=== PATIENT | male | born 1940 | race Caucasian/White ===

== ENCOUNTER → 2018-03-20 | Outpatient (CLI) | payer MEDICARE, OTHER ==
--- NOTE | 2018-03-16 12:01 | Diagnostic Imaging Report ---
Thoracic Spine Radiographs: 4 views HISTORY: Pain COMPARISON: None available. DISCUSSION: The study is limited by generalized demineralization. No definite evidence of acute displaced fracture or subluxation of thoracic spine. Mild compression deformities of T11 and T12 vertebral bodies (T12 more than T11). Otherwise, vertebral body heights are maintained. Normal alignment of thoracic spine vertebral bodies. Left chest wall triple lead cardiac device and anterior cervical spine fusion hardware are seen. IMPRESSION: Compression deformities of T11 and T12 vertebral bodies of indeterminate age. Signed by: Dr. Karl Henry MD on 03/16/2018 11:58 AM
--- NOTE | 2018-03-16 12:05 | Diagnostic Imaging Report ---
Lumbar Spine Radiographs: 6 views HISTORY: Pain COMPARISON: Lumbar spine CT dated 04/16/2016 DISCUSSION: Some of the osseous structures are partially obscured by stool and bowel gas. There are five non-rib bearing lumbar vertebral bodies. The alignment of the spine is within normal limits. Compression deformities of T11, T12, and L2 vertebral bodies of indeterminate age. L5-S1 degenerative changes. IMPRESSION: T11, T12, and L2 vertebral body compression deformities of indeterminate age. Signed by: Dr. Karl Henry MD on 03/16/2018 12:01 PM
[~2018-03-20] MED LIST: ALDACTONE25 MG PO; ALLEGRA ALLERG180 MG PO; AMITRIPTYLINE H25 MG PO; ELIQUIS PO; LEVOTHYROXINE50 MCG PO; MIDODRINE HCL5 MG PO; MYRBETRIQ50 MG PO; NEXIUM40 MG PO; ROPINIROLE HCL2 MG PO; VENLAFAXINE HC100 MG PO; ZOLPIDEM TARTRA10 MG PO
--- NOTE | 2018-03-20 19:28 | Diagnostic Imaging Report ---
Bone Scan, delayed phase INDICATION: Bladder cancer; history of prostate cancer COMPARISON: Prior bone scan 04/18/2016; spine radiographs 03/16/2018 REPORT: Approximately 3 hours following intravenous administration of 25 mCi of Tc-99m MDP, delayed total body images in the anterior and posterior projections and selected spot images were obtained. Increased tracer is seen in the sacrum to the coccyx but not including the sacral alae. Focal increased tracer is seen in the right ilium at the inferior aspect of the SI joint. Otherwise, distribution of tracer activity is unremarkable throughout the skeletal system. No abnormal accumulation of tracer is seen in the soft tissues or urinary tract. IMPRESSION: Osteoblastic processes at the inferior aspect of the SI joint in the right ilium and in the sacrum are very worrisome for bone metastasis. Correlative imaging is warranted. Signed by: Dr. Indu Topete M.D. on 03/20/2018 7:25 PM
== END ==
LOC: NM 03-16 09:24
PROVIDERS: ATTEND Internal Medicine
DX: C67.9 Malignant neoplasm of bladder, unspecified (principal); R97.20 Elevated prostate specific antigen [PSA]
CPT/HCPCS: 72070; 72110; 78306; A9503

== ENCOUNTER 2018-04-27 10:05 | Emergency (ER) | payer MEDICARE ==
[~2018-04-27] VITALS: Ht 193 cm; Wt 124.3 kg
[2018-04-27] MEDS ORDERED: TRAMADOL HCL 50 MG TAB PO ONE (10:30)
--- NOTE | 2018-04-27 12:18 | Diagnostic Imaging Report ---
Exam: Left shoulder, 2 views, left scapula, 2 views History: Fall, pain Comparison: None. Findings: There is an acute, comminuted, impacted fracture of the surgical neck of the left humerus with approximately 1 cm fragment overriding and extension to the superior articular surface of the humeral head. No shoulder dislocation; the humeral head projects appropriately over the glenoid on the transscapular radiograph. No displaced scapular fracture though evaluation is slightly limited secondary to superimposition of overlying left chest implantable cardiac device. Diffuse soft tissue swelling about the left shoulder. Impression: Acute, comminuted and impacted intra-articular fracture of the humeral head and surgical neck. Signed by: Dr. Tl Romero M.D. on 04/27/2018 12:14 PM
[2018-04-27] MEDS ORDERED: HYDROCODONE/APAP 5MG-325MG TAB PO ONE (13:15)
[2018-04-27] MEDS ORDERED: KETOROLAC TROMETHAMINE 10 MG TAB PO ONE (13:15)
[2018-04-27] MEDS ORDERED: NEOMYCIN/POLYMYX/BACITR OINT 0.9 GM PKT ONE (13:41)
--- OUTSIDE RECORDS SUMMARY | 2018-05-05 11:53 | XMS REPORT ---
Author Author [facility] Address Unknown Phone Unavailable Care Team Providers Care Target Aircraft Technician Name Role Phone Tina COKER Unavailable Unavailable Laureano CASTAÑEDA Unavailable Unavailable Problems This patient has no known problems. Allergies, Adverse Reactions, Alerts This patient has no known allergies or adverse reactions. Medications This patient has no known medications. Results Test Description Test Time Test Comments Text Results Atomic Results Result Comments SHOULDER LEFT COMPLETE 2018-04-27 12:11:00 [place] [address] Patient Name: HANS PERKINS MR #: [id number] : 1940 Age/Sex: 77/M Req #: [id number] Adm Physician: Ordered by: CURTIS COKER MD Report #: [id number] Location: ER Room/Bed: Procedure: [id number] DX/SHOULDER LEFT COMPLETE Exam Date: 04/27/18 Exam Time: 1100 REPORT STATUS: Signed Exam: Left shoulder, 2 views, left scapula, 2 views History: Fall, pain Comparison: None. Findings: There is an acute, comminuted, impacted fracture of the surgical neck of the left humerus with approximately 1 cm fragment overriding and extension to the superior articular surface of the humeral head. No shoulder dislocation; the humeral head projects appropriately over the glenoid on the transscapular radiograph. No displaced scapular fracture though evaluation is slightly limited secondary to superimposition of overlying left chest implantable cardiac device. Diffuse soft tissue swelling about the left shoulder. Impression: Acute, comminuted and impacted intra-articular fracture of the humeral head and surgical neck. Signed by: Dr. Kenna Bradford M.D. on 04/27/2018 12:14 PM Dictated By: KENNA BRADFORD MD 1214 Transcribed By: HOWIE on 04/27/18 1214 COPY TO: CURTIS COKER MD SCAPULA LEFT 2018-04-27 12:11:00 [place] [address] Patient Name: HANS PERKINS MR #: [id number] : 1940 Age/Sex: 77/M Req #: [id number] Adm Physician: Ordered by: CURTIS COKER MD Report #: [id number] Location: ER Room/Bed: Procedure: [id number] DX/SCAPULA LEFT Exam Date: 04/27/18 Exam Time: 1100 REPORT STATUS: Signed Exam: Left shoulder, 2 views, left scapula, 2 views History: Fall, pain Comparison: None. Findings: There is an acute, comminuted, impacted fracture of the surgical neck of the left humerus with approximately 1 cm fragment overriding and extension to the superior articular surface of the humeral head. No shoulder dislocation; the humeral head projects appropriately over the glenoid on the transscapular radiograph. No displaced scapular fracture though evaluation is slightly limited secondary to superimposition of overlying left chest implantable cardiac device. Diffuse soft tissue swelling about the left shoulder. Impression: Acute, comminuted and impacted intra-articular fracture of the humeral head and surgical neck. Signed by: Dr. Kenna Bradford M.D. on 04/27/2018 12:14 PM Dictated By: KENNA BRADFORD MD 13 Transcribed By: HOWIE on 04/27/181213 COPY TO: CURTIS COKER MD BONE and/or JOINT WHOLE BODY 2018-03-20 19:18:00 [place] [address] Patient Name: HANS PERKINS MR #: [id number] : 1940 Age/Sex: 77/M Req #: [id number] Adm Physician: Ordered by: SAMMY CASTAÑEDA MD Report #: [id number] Location: [place] Room/Bed: Procedure: [id number] NM/BONE and/or JOINT WHOLE BODY Exam Date: 03/20/18 Exam Time: 1100 REPORT STATUS: Signed Bone Scan, delayed phase INDICATION: Bladder cancer; history of prostate cancer COMPARISON: Prior bone scan 04/18/2016; spine radiographs 03/16/2018 REPORT: Approximately 3 hours following intravenous administration of 25 mCi of Tc-99m MDP, delayed total body images in the anterior and posterior projections and selected spot images were obtained. Increased tracer is seen in the sacrum to the coccyx but not including the sacral alae. Focal increased tracer is seen in the right ilium at the inferior aspect of the SI joint. Otherwise, distribution of tracer activity is unremarkable throughout the skeletal system. No abnormal accumulation of tracer is seen in the soft tissues or urinary tract. IMPRESSION: Osteoblastic processes at the inferior aspect of the SI joint in the right ilium and in the sacrum are very worrisome for bone metastasis. Correlative imaging is warranted. Signed by: Dr. Jerome Topete M.D. on 03/20/2018 7:25 PM Dictated By: JEROME TOPETE MD 24 Transcribed By: HOWIE on 03/20/181924 COPY TO: SAMMY CASTAÑEDA MD SP LUMBAR, COMPLETE MIN 4VW 2018-03-16 11:58:00 [place] [address] Patient Name: HANS PERKINS MR #: [id number] : 1940 Age/Sex: 77/M Req #: [id number] Adm Physician: Ordered by: SAMMY CASTAÑEDA MD Report #: [id number] Location: [place] Room/Bed: Procedure: [id number] DX/SP LUMBAR, COMPLETE MIN 4VW Exam Date: 03/16/18 Exam Time: 1036 REPORT STATUS: Signed Lumbar Spine Radiographs: 6 views HISTORY: Pain COMPARISON: Lumbar spine CT dated 04/16/2016 DISCUSSION: Some of the osseous structures are partially obscured by stool and bowel gas. There are five non-rib bearing lumbar vertebral bodies. The alignment of the spine is within normal limits. Compression deformities of T11, T12, and L2 vertebral bodies of indeterminate age. L5-S1 degenerative changes. IMPRESSION: T11, T12, and L2 vertebral body compression deformities of indeterminate age. Signed by: Dr. Karl Villegas MD on 03/16/2018 12:01 PM Dictated By: KARL VILLEGAS MD 00 Transcribed By: HOWIE on 03/16/181200 COPY TO: SAMMY CASTAÑEDA MD THORACIC SPINE 2VW 2018-03-16 11:54:00 [place] [address] Patient Name: HANS PERKINS MR #: [id number] : 1940 Age/Sex: 77/M Req #: [id number] Adm Physician: Ordered by: SAMMY CASTAÑEDA MD Report #: [id number] Location: [place] Room/Bed: Procedure: [id number] DX/THORACIC SPINE 2VW Exam Date: 03/16/18 Exam Time: 1039 REPORT STATUS: Signed Thoracic Spine Radiographs: 4 views HISTORY: Pain COMPARISON: None available. DISCUSSION: The study is limited by generalized demineralization. No definite evidence of acute displaced fracture or subluxation of thoracic spine. Mild compression deformities of T11 and T12 vertebral bodies (T12 more than T11). Otherwise, vertebral body heights are maintained. Normal alignment of thoracic spine vertebral bodies. Left chest wall triple lead cardiac device and anterior cervical spine fusion hardware are seen. IMPRESSION: Compression deformities of T11 and T12 vertebral bodies of indeterminate age. Signed by: Dr. Karl Villegas MD on 03/16/2018 11:58 AM Dictated By: KARL VILLEGAS MD 1151 Transcribed By: HOWIE on 03/16/18 1156 COPY TO: SAMMY CASTAÑEDA MD
== END 2018-04-27 14:05 | disposition home or self-care (01) ==
LOC: ER 10:11
DX: M25.512 Pain in left shoulder (principal); S72.062A Displaced articular fracture of head of left femur, initial encounter for closed fracture; W01.0XXA Fall on same level from slipping, tripping and stumbling without subsequent striking against object, initial encounter; Y92.008 Other place in unspecified non-institutional (private) residence as the place of occurrence of the external cause
CPT/HCPCS: 99284

== ENCOUNTER → 2019-11-17 | Outpatient (CLI) | payer MEDICARE ==
--- NOTE | 2019-11-17 11:53 | Diagnostic Imaging Report ---
EXAMINATION: SP LUMBAR, COMPLETE MIN 4VW, SACRUM X-RAY, PELVIS AP 1-2 VIEWS INDICATION: Fall COMPARISON: None FINDINGS: Pelvis: No acute fracture or dislocation. Alignment appears anatomic. Mild degenerative changes of both hip joints. Phleboliths in the pelvis. Atherosclerotic arterial calcifications. Lumbar spine: Age indeterminate compression fractures of T11, T12, L2 and L4. Degenerative changes of the visualized spine. Oblique images demonstrate no definite spondylolysis. Sacrum: No acute fracture or dislocation. IMPRESSION: Age-indeterminate compression fractures of T11, T12, L2 and L4. Degenerative changes as above. Signed by: Tahmina Weinberg MD on 11/17/2019 11:49 AM
== END ==
LOC: RAD 10:12
PROVIDERS: ATTEND Internal Medicine
DX: M54.5 Low back pain (principal); M53.3 Sacrococcygeal disorders, not elsewhere classified; R10.2 Pelvic and perineal pain; R29.6 Repeated falls
CPT/HCPCS: 72110; 72170; 72220

== ENCOUNTER 2020-02-17 13:44 | Inpatient (IN) | payer MEDICARE, OTHER ==
[~2020-02-17] VITALS: Ht 190.5 cm; Wt 124.3 kg
--- NOTE | 2020-02-17 15:07 | Diagnostic Imaging Report ---
X-ray lumbar spine multiple views History: Fall, back pain Comparison: 11/17/2019 Findings: Status post L4 vertebroplasty for compression fracture primarily involving the superior endplate. The bones are diffusely osteopenic. There is presence of compression deformity of multiple thoracic and lumbar vertebrae including T11, T12, L2 and L3. No spondylolysis or spondylolisthesis. No lytic or blastic lesions. No other incidental findings. Impression: The vertebroplasty is new compared with the previous exam. L3 compression is new compared with the previous exam. Clinical correlation and if needed an MRI scan or bone scan may be performed to assess for acuity of the impression especially at L3 level. Signed by: Jovani Cage MD on 02/17/2020 3:04 PM
[2020-02-17 16:48] LABS: BASOPHILS % 0.7 % (0.0-1.0); EOSINOPHILS # (AUTO) 0.3 (0.0-0.4); EOSINOPHILS % 5.9 % (0.0-6.0); HEMATOCRIT 38.2 % (38.2-49.6); HEMOGLOBIN 13.1 g/dL (14.0-18.0); LYMPHOCYTES # (AUTO) 0.9 (1.0-3.2); LYMPHOCYTES % 17.5 % (18.0-39.1); MEAN CORPUSCULAR HGB CONC 34.3 g/dL (31-35); MEAN CORPUSCULAR VOLUME 90.3 fL (81-99); MONOCYTES # (AUTO) 0.6 (0.2-0.8); MONOCYTES % 10.2 % (4.4-11.3); NEUTROPHILS # (AUTO) 3.5 (2.1-6.9); NEUTROPHILS % 65.5 % (38.7-80.0); PLATELET COUNT 211 x10e3/uL (140-360); RED BLOOD COUNT 4.23 x10e6/uL (4.3-5.7); RED CELL DISTRIBUTION WIDTH 13.3 % (11.7-14.4)
--- NOTE | 2020-02-17 16:50 | NUR ---
RECEIVED PATIENT FROM ER. PATIENT CONFUSED AT THIS TIME. HISTORY AND ADMISSION INFORMATION RECEIVED FROM IBETH PERKINS. BED ALARM ACTIVATED. PATIENT CALM AND RESTING AT THIS TIME NO S/S OF DISTRESS. TELEMETRY # 11 PACED RHYTHM. CALL LIGHT IN REACH WILL CONTINUE TO MONITOR.
[2020-02-17 17:01] LABS: ALANINE AMINOTRANSFERASE 33 IU/L (0-55); ALBUMIN 3.5 g/dL (3.5-5.0); ALBUMIN/GLOBULIN RATIO 1.1 (0.8-2.0); ALKALINE PHOSPHATASE 98 IU/L (40-150); ANION GAP 11.9 mmol/L (8-16); BLOOD UREA NITROGEN 14 mg/dL (7-26); BUN/CREATININE RATIO 16 (6-25); CALCIUM 9.3 mg/dL (8.4-10.2); CARBON DIOXIDE 24 mmol/L (22-29); CHLORIDE 110 mmol/L (98-107); CREATINE KINASE 31 IU/L (30-200); CREATININE, SERUM 0.87 mg/dL (0.72-1.25); EST GLOMERULAR FILTRATION RATE > 60 ML/MIN (60-); GLUCOSE 116 mg/dL (74-118); POTASSIUM 3.9 mmol/L (3.5-5.1); SODIUM 142 mmol/L (136-145)
[2020-02-17 17:05] VITALS: BP 116/69
[2020-02-17 17:11] VITALS: BP 116/69
--- NOTE | 2020-02-17 17:17 | Emergency Department Note ---
History of Present Illnes History of Present Illness Chief Complaint: Back Pain History of Present Illness This is a 79 year old male . 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 Any updates have been documented here. Past Medical History Recent Fever: No Clinical Suspicion of Infectio: No New/Unexplained Change in Ment: No Past Medical History: CHF, Hypothyroidism Other Medical History: SLEEP APNEA ORTHOSTATIC HYPOTENSION prostate Past Surgical History: Pacer/AICD Other Surgery: PROSTATE BLADDER Social History Smoking Cessation: Never Smoker Counseling Performed: No Alcohol Use: None Any Illegal Drug Use: No Other Last Tetanus: UNKNOWN Any Pre-Existing Lines (PICC,: No Physical Exam Related Data Allergies: Coded Allergies: No Known Drug Allergies (Verified Allergy, Unknown, 04/16/16) Triage Vital Signs Vital Signs Date Time Temp Pulse Resp B/P (MAP) Pulse Ox O2 Delivery O2 Flow Rate FiO2 02/17/20 13:52 98.5 80 18 147/97 98 Room Air Physical Exam CONSTITUTIONAL HENT EYES NECK PULMONARY CARDIOVASCULAR GASTROINTESTINAL GENITOURINARY SKIN MUSCULOSKELETAL NEUROLOGICAL PSYCHOLOGICAL Results Laboratory Result Diagram: 02/17/20 1609 02/17/20 1609 Laboratory Laboratory Tests Test 02/17/20 16:09 White Blood Count 5.38 x10e3/uL (4.8-10.8) Red Blood Count 4.23 x10e6/uL (4.3-5.7) Hemoglobin 13.1 g/dL (14.0-18.0) Hematocrit 38.2 % (38.2-49.6) Mean Corpuscular Volume 90.3 fL (81-99) Mean Corpuscular Hemoglobin 31.0 pg (28-32) Mean Corpuscular Hemoglobin Concent 34.3 g/dL (31-35) Red Cell Distribution Width 13.3 % (11.7-14.4) Platelet Count 211 x10e3/uL (140-360) Neutrophils (%) (Auto) 65.5 % (38.7-80.0) Lymphocytes (%) (Auto) 17.5 % (18.0-39.1) Monocytes (%) (Auto) 10.2 % (4.4-11.3) Eosinophils (%) (Auto) 5.9 % (0.0-6.0) Basophils (%) (Auto) 0.7 % (0.0-1.0) Neutrophils # (Auto) 3.5 (2.1-6.9) Lymphocytes # (Auto) 0.9 (1.0-3.2) Monocytes # (Auto) 0.6 (0.2-0.8) Eosinophils # (Auto) 0.3 (0.0-0.4) Basophils # (Auto) 0.0 (0.0-0.1) Absolute Immature Granulocyte (auto 0.01 x10e3/uL (0-0.1) Sodium Level 142 mmol/L (136-145) Potassium Level 3.9 mmol/L (3.5-5.1) Chloride Level 110 mmol/L (98-107) Carbon Dioxide Level 24 mmol/L (22-29) Anion Gap 11.9 mmol/L (8-16) Blood Urea Nitrogen 14 mg/dL (7-26) Creatinine 0.87 mg/dL (0.72-1.25) Estimat Glomerular Filtration Rate > 60 ML/MIN (60-) BUN/Creatinine Ratio 16 (6-25) Glucose Level 116 mg/dL (74-118) Calcium Level 9.3 mg/dL (8.4-10.2) Total Bilirubin 0.7 mg/dL (0.2-1.2) Aspartate Amino Transf (AST/SGOT) 31 IU/L (5-34) Alanine Aminotransferase (ALT/SGPT) 33 IU/L (0-55) Alkaline Phosphatase 98 IU/L (40-150) Creatine Kinase 31 IU/L (30-200) Creatine Kinase MB 0.80 ng/mL (0-5.0) Troponin I 0.015 ng/mL (0-0.300) Total Protein 6.8 g/dL (6.5-8.1) Albumin 3.5 g/dL (3.5-5.0) Globulin 3.3 g/dL (2.3-3.5) Albumin/Globulin Ratio 1.1 (0.8-2.0) Assessment & Plan Last Vital Signs Date Time Temp Pulse Resp B/P (MAP) Pulse Ox O2 Delivery O2 Flow Rate FiO2 02/17/20 17:11 98.2 79 18 100 Room Air 02/17/20 17:05 116/69 (85) Home Meds Reported Medications Amitriptyline Hcl (AMITRIPTYLINE HCL) 25 Mg Tablet, 25 MG PO DAILY, #30 TAB 04/16/16 Mirabegron (MYRBETRIQ) 50 Mg Tab.er.24h, 50 MG PO DAILY 04/16/16 [Eliquis] No Conflict Check, 5 MG PO BID 04/16/16 Midodrine Hcl (MIDODRINE HCL) 5 Mg Tablet, 5 MG PO DAILY 04/16/16 Spironolactone (ALDACTONE) 25 Mg Tablet, 25 MG PO 04/16/16 Fexofenadine Hcl (OJSE ALLERGY) 180 Mg Tablet, 180 MG PO DAILY 04/16/16 Levothyroxine Sodium (LEVOTHYROXINE SODIUM) 50 Mcg Tablet, 50 MCG PO DAILY, #30 TAB 04/16/16 Esomeprazole Magnesium (NEXIUM) 40 Mg Capsule.dr, 40 MG PO DAILY PROTONIX THERAPEUTIC SUBSTITUTE FOR NEXIUM PER [facility] 04/16/16 Zolpidem Tartrate (ZOLPIDEM TARTRATE) 10 Mg Tablet, 10 MG PO HS, #30 TAB 04/16/16 IHSAN DE LA ROSA, DO Feb 17, 2020 17:17
--- NOTE | 2020-02-17 17:21 | Diagnostic Imaging Report ---
History: Low back pain, rule out compression fracture Comparison studies: None Technique: Axial images were obtained from T11 through the sacrum. Coronal and sagittal images reconstructed from the axial data. Dose modulation, iterative reconstruction, and/or weight based adjustment of the mA/kV was utilized to reduce the radiation dose to as low as reasonably achievable. Intravenous contrast: None Findings: Number of non-rib bearing vertebral bodies: 5 Alignment: Normal lordosis. No scoliosis. Soft tissues: Atherosclerotic calcifications in the aorta and iliac arteries. Paraspinal muscles: Unremarkable. Vertebrae: Bones are diffusely demineralized (lumbar spine, sacrum and iliac wings Age indeterminate compression fractures along the superior endplates of T11, T12, L2 and L3 result in less than 30% height loss. No retropulsed fragment displaced into the spinal canal. An additional fracture, associated with hyperdense cemented, along the superior endplate of L4 results in 50% height loss. No, infection or neoplasm. Degenerative changes: * Focal anterior fused osteophytes at T11-T12. * Mildly degenerated disc at L5-S1. * Mild facet arthrosis and degenerative changes between the spinous processes through the lumbar region. * Moderate spinal canal stenosis at L3-4, L4-5 due to disc bulges and facet arthrosis. * Moderate bilateral foraminal stenosis at L5-S1 is due to endplate osteophytes and facet arthrosis. Sacroiliac joints: Mildly degenerated IMPRESSION: 1. No acute abnormalities. 2. Bones are diffusely demineralized. 3. Chronic compression fractures at T11-T12, L2, L3 and L4 are not associated with retropulsed fragments displaced into the spinal canal. The fracture at L4 has been previously treated with a vertebroplasty. 4. Degenerative spinal canal and foraminal stenosis as described. Signed by: Dr. Pacheco Jacobs M.D. on 02/17/2020 5:18 PM
[2020-02-17 17:39] VITALS: BP 116/69
--- NOTE | 2020-02-17 19:28 | NUR ---
RECIVED PT IN BED AOX2 ,RESPIRATIONS ARE EVEN AND UNLABORED ,DENIES PAIN CALL LIGHT WITHIN REACH ,CONTINUE TO MONITOR
[2020-02-17 20:00] VITALS: BP 134/120
[2020-02-17 20:14] VITALS: BP 116/69
[2020-02-17] MEDS ORDERED: VENLAFAXINE HCL75 MG PO (21:52)
[2020-02-17] MEDS ORDERED: FLOMAX0.4 MG PO (21:52)
[2020-02-17] MEDS ORDERED: ASPIRIN81 MG (21:52)
[2020-02-17] MEDS ORDERED: DOCUSATE SODIUM 100 MG CAP PO PRN (23:15)
[2020-02-18] VITALS (8 sets, daily range): BP systolic 122–166; BP diastolic 75–115
--- NOTE | 2020-02-18 00:57 | History and Physical ---
CHIEF COMPLAINT: Multiple falls. HISTORY OF PRESENT ILLNESS: This is a 79-year-old male, very poor historian, has a history of hypothyroidism, history of CHF, also orthostatic hypotension. Per report, the patient has underlying dementia, unable to obtain any information, but according to the ER doctor, the patient was brought in due to multiple falls at home. He has had multiple compression fractures and apparently in the past has had kyphoplasty. The patient was brought in for further evaluation and management. Imaging studies show chronic lumbar compression fractures and needing further evaluation, and apparently there may be an acute fracture at L4 as well. The patient was seen and evaluated at bedside on the medical floor. Currently, he is doing well with no other issues at this time. REVIEW OF SYSTEMS: Pertinent positives: Unable to obtain a whole lot of information. The patient has baseline dementia and there are no family at bedside. We do know he has multiple falls. ALLERGIES: NO KNOWN DRUG ALLERGIES. HOME MEDICATIONS: 1. Amitriptyline. 2. Omeprazole. 3. Levothyroxine. 4. Midodrine. 5. Myrbetriq. 6. Tamsulosin. 7. Venlafaxine. 8. Aspirin. 9. Spironolactone. 10. Ambien. 11. Marbella. 12. Questionable Eliquis. PAST MEDICAL HISTORY: As we do know he has heart failure, hypothyroidism, chronic orthostatic hypotension, BPH, questionable heart failure. PAST SURGICAL HISTORY: He has a pacer with an AICD. Other surgeries; he has bladder and prostate surgery. FAMILY HISTORY: Hypertension and diabetes. SOCIAL HISTORY: Unable to obtain now. We know he is . He has children. Unsure about drugs and alcohol and smoking history. PHYSICAL EXAMINATION: VITAL SIGNS: Temperature is 98.2, pulse 79, respiratory rate is 18, blood pressure 116/69, pulse ox 100% on room air. GENERAL: Not in acute distress. He is alert and oriented only x2. Cooperative on examination. HEENT: Head; normocephalic, atraumatic. Eyes; pupils are equal, round, and reactive to light bilaterally. Extraocular movements intact bilaterally. Throat; no evidence of erythema or exudates in the posterior pharynx. Has poor dentition. NECK: Supple. Good range of motion. PULMONARY: Clear to auscultation bilaterally. No wheezing, no rales, no rhonchi, no crackles appreciated. CARDIOVASCULAR: Positive S1 and S2. No murmurs, rubs, or gallops appreciated. ABDOMEN: Soft, nondistended, and nontender to palpation. Bowel sounds present. MUSCULOSKELETAL: Unable to assess at this time. The patient is not very cooperative on this examination. SKIN: Intact. Warm to touch. Good cap refill. PSYCHIATRIC: Normal affect and mood. He has baseline dementia. EXTREMITIES: No edema. Good range of motion throughout. LABORATORY FINDINGS: Show white count was 5.3, hemoglobin 13, hematocrit 38, platelets of 211. Chemistry; sodium 142, potassium 3.9, chloride 110, bicarb 24, anion gap of 11, BUN is 14, creatinine 0.87, glucose is 116, calcium is 9.3, total bilirubin was 0.7, AST 31, ALT 33, alkaline phosphatase 98, CK 31. Troponins were negative. Albumin was 3.5. SEROLOGY: Coronavirus is not detected. MICROBIOLOGY: None. IMAGING STUDIES: The lumbar x-ray that showed vertebroplasties new compared to the previous L3 compression, and new compared to previous examination. CT lumbar spine shows no acute abnormality. The bones are diffusely demineralized. Chronic compression fractures in T11, T12, L2, L3, L4, not associated with the repulsive fragments displaced into the vertebral canal. Fracture L4 has been previously treated with vertebroplasty. Degenerative spinal canal and foraminal stenosis as described. IMPRESSION: 1. Multiple mechanical falls. 2. Concerns for acute L4 compression fracture. 3. Chronic thoracic and lumbar compression fractures. 4. History of orthostatic hypotension. 5. Benign prostatic hypertrophy. 6. Concerns for baseline dementia. PLAN: At this time, I will go ahead and consult with Neurosurgery, Dr. Iglesias. I will go ahead and get an MRI of the lumbar spine as well for further evaluation and management. Pain control. Resume same home medications including his oral midodrine for orthostatic hypotension. I will consult with the rehab physician, Dr. Nino. He may benefit from rehab. A TLSO brace was ordered through Case Management to arrange. He may need another kyphoplasty. We will determine baseline Neurosurgery recommendations. We will put him on Lovenox for DVT prophylaxis. I am not sure if he is on Eliquis, but if so he may not be a candidate due to multiple falls. Put him on a heart healthy diet. I will put a bed alarm on the patient. He seems the type of patient who will get up and walk despite his ambulation is poor. We will put PT, OT evaluation, otherwise. MD SIVA Boyer/MODGavin /[id number]
[2020-02-18] MEDS: HYDRALAZINE HCL 20 MG/ML VIAL IV PRN (02:11)
[2020-02-18] MEDS: HYDROCODONE/APAP 5MG-325MG TAB PO PRN (02:12)
--- NOTE | 2020-02-18 02:27 | NUR ---
DR BONNER HAS SEEN THE PT AND RENEWED THE HOME MEDICATION .PT RESTING ,CONTIUE TO MONITOR
[2020-02-18 05:01] LABS: BASOPHILS % 0.5 % (0.0-1.0); EOSINOPHILS # (AUTO) 0.3 (0.0-0.4); EOSINOPHILS % 5.4 % (0.0-6.0); HEMATOCRIT 39.3 % (38.2-49.6); HEMOGLOBIN 13.4 g/dL (14.0-18.0); LYMPHOCYTES # (AUTO) 1.1 (1.0-3.2); LYMPHOCYTES % 19.1 % (18.0-39.1); MEAN CORPUSCULAR HEMOGLOBIN 30.2 pg (28-32); MEAN CORPUSCULAR HGB CONC 34.1 g/dL (31-35); MEAN CORPUSCULAR VOLUME 88.7 fL (81-99); MONOCYTES # (AUTO) 0.6 (0.2-0.8); MONOCYTES % 10.3 % (4.4-11.3); NEUTROPHILS # (AUTO) 3.7 (2.1-6.9); NEUTROPHILS % 64.2 % (38.7-80.0); PLATELET COUNT 210 x10e3/uL (140-360); RED BLOOD COUNT 4.43 x10e6/uL (4.3-5.7); RED CELL DISTRIBUTION WIDTH 13.2 % (11.7-14.4)
[2020-02-18 05:16] LABS: ANION GAP 13.5 mmol/L (8-16); BLOOD UREA NITROGEN 13 mg/dL (7-26); BUN/CREATININE RATIO 16 (6-25); CALCIUM 9.7 mg/dL (8.4-10.2); CARBON DIOXIDE 23 mmol/L (22-29); CHLORIDE 109 mmol/L (98-107); CREATININE, SERUM 0.79 mg/dL (0.72-1.25); EST GLOMERULAR FILTRATION RATE > 60 ML/MIN (60-); GLUCOSE 96 mg/dL (74-118); POTASSIUM 3.5 mmol/L (3.5-5.1); SODIUM 142 mmol/L (136-145)
[2020-02-18] MEDS: LEVOTHYROXINE SODIUM 50 MCG TAB PO SCH (05:46)
--- NOTE | 2020-02-18 06:36 | NUR ---
PT RESTING DENIES PAIN ,CALL LIGHT WITH IN REACH ,CONTINUE TO MONITOR
--- NOTE | 2020-02-18 07:19 | NUR ---
BEDSIDE REPORT GIVEN TO THE ONCOMING NURSE
--- NOTE | 2020-02-18 07:36 | NUR ---
spoke with Dr. Iglesias re: consult for compression fractures, ct spine results read to md. md states he is declining consult no interventions needed from his standpoint. spoke with Dr. hilton informed of rehab eval, no further orders at this time. notified dr. brewster re: declined consult for dr. iglesias, order for ortho consult given.
[2020-02-18] MEDS: NON-FORMULARY MEDICATION (Mirabegron (Myrbetriq) 50 MG) PO SCH (09:00)
[2020-02-18] MEDS: MIDODRINE HCL 5 MG TABLET PO SCH (09:00)
[2020-02-18] MEDS ORDERED: LEVOTHYROXINE SODIUM 50 MCG TAB PO SCH (09:00)
[2020-02-18] MEDS: VENLAFAXINE HCL 75 MG TAB PO SCH (09:35)
[2020-02-18] MEDS: TAMSULOSIN HCL 0.4 MG CAP PO SCH (09:36)
[2020-02-18] MEDS: AMITRIPTYLINE HCL 25 MG TAB PO SCH (09:36)
[2020-02-18] MEDS: PANTOPRAZOLE SOD 40 MG TABEC PO SCH (09:37)
--- NOTE | 2020-02-18 11:30 | NUR ---
REP FROM [facility] HERE TO FIT PT FOR TLSO BRACE, PHYSICAL THERAPY AND NURSE ASSISTED PT TO STAND AT BED WHILE BRACE WAS APPLIED, PT WEAK AND KNEES SHAKEN, PT ASSISTED TO SIT ON SIDE OF BED DUE TO CONCERNS OF PT FALLING, BRACE ADJUSTED TO PROPER FIT, AND PT PLACED BACK IN BED. CALL LIGHT IN REACH, BED ALARM APPLIED, WILL CONTINUE TO MONITOR
--- NOTE | 2020-02-18 13:00 | NUR ---
TRIED CALLING AT BOTH NUMBERS LISTED IN COMPUTER FOR MD TO SPEAK WITH, NO ANSWER, LEFT MESSAGE AWAITING CALL BACK.
--- NOTE | 2020-02-18 13:19 | Consultation ---
DATE OF CONSULTATION: 02/18/2020 I would like to thank, Dr. Pyle, for asking me to see Mr. Schwarz in consultation. REASON FOR CONSULTATION: 1. Impaired gait, mobility secondary to multiple falls. 2. Recurrent chronic thoracic and lumbar compression fracture. HISTORY OF PRESENT ILLNESS: History mainly from medical records on the chart, as the patient has dementia, cannot give much history. The patient is a 79-year-old male, very poor historian with history of CHF, dementia, orthostatic hypotension, who has had multiple falls at home, came into the hospital, found to have compression fractures and possible new L4 compression fracture with compression, was seen by Dr. Iglesias and did not require surgery at this point. I am being asked to evaluate for rehab needs. PAST MEDICAL HISTORY: Includes dementia, heart failure, hypothyroidism, and orthostatic hypotension. PAST SURGICAL HISTORY: Include pacemaker with AICD, bladder and prostate surgery. FAMILY HISTORY: Hypertension and diabetes. SOCIAL HISTORY: Lives with his . He stays in a 2-anna home. Prior level of function is not certain at this time. He could not tell me what he did for a living. HABITS: Unable to obtain. REVIEW OF SYSTEMS: Constitutional review of systems unable to obtain. LABORATORY DATA: White cell count is 5.7, hemoglobin 13.4, hematocrit 39.3, and platelets of 210. Sodium 140, potassium 3.5, BUN of 13, and creatinine 0.79. No CT or speech therapy notes available at this time. PHYSICAL EXAMINATION: GENERAL: The patient is awake. He is alert, but is confused. He is not oriented to the date or the year or to really where he is. I asked what he did for living, he could not really tell me. He has somewhat garbled speech. No dysarthric. NECK: Supple. HEART: Regular. LUNGS: Diminished breath sounds. ABDOMEN: Nondistended and nontender. EXTREMITIES: Functional range of motion to the arms. Limited active movement to the legs. Sensory jurado, cannot adequately assess. He has fairly decent control of his arms and legs, but does not flex his left leg as much. He tends to extend the left knee when asking to flex, but he is very strong from that standpoint. Manual muscle testing 4/5 strength upper extremities bilaterally. In the right lower extremity, hip flexion and extension was 2-/5 on the right. He did not really flex his left leg, but he instead extends the leg and other times, he would flex the leg, but he is somewhat confused. Knee flexion and extension were limited. Ankle dorsiflexion, plantar flexion 4+/5 strength. Unable to turn the patient enough to check his back. IMPRESSION: 1. Chronic compression fractures, T1 through L4. 2. Dementia. 3. New L3 compression fracture. 4. Benign prostatic hyperplasia. 5. Orthostatic hypotension. 6. . PT and speech therapy have been ordered. We do not have OT in the house. We will see how he performs. If he is able to handle rehab level of care in addition to his multiple medical comorbidities and consider inpatient rehab . We will follow and see how he does. Thank you once again for allowing me to participate in the care of this pleasant, but unfortunate patient. Owen Nino DO RPL/MODL /[id number]
--- NOTE | 2020-02-18 15:44 | NUR ---
ORDER FOR REHABILATION PT CONFUSED AND UNABLE TO GIVE CHOICE CM CALLED IBETH PERKINS AT [phone] AND NO ANSWER OR VOICE MAIL CM CALLED AT [phone] PHONE WENT TO VOICE MAIL BUT MAILBOX FULL P.T. ALSO UNABLE TO REACH WELL DR BONNER
[2020-02-18] MEDS: ENOXAPARIN SOD INJ 40 MG/0.4 ML SYR SC SCH (17:43)
--- NOTE | 2020-02-18 17:44 | NUR ---
PT PULLED R EJ OUT, IV TO L FA 20G X 1 STICK PT TOLERATED WELL.
--- NOTE | 2020-02-18 19:00 | NUR ---
RECEIVED PATIENT IN BEDSIDE SHIFT REPORT. PATIENT RESTING IN BED AT THIS TIME. TLSO BRACE IN PLACE. TELE MONITOR ON. BED ALARM ACTIVE. NO PAIN REPORTED OR NOTED. NO S&S OF DISTRESS NOTED. BED LOCKED IN LOWEST POSITION, SIDE RAILS UPX2, CALL LIGHT IN REACH.
--- NOTE | 2020-02-18 19:30 | NUR ---
PHONE NUMBERS FOR PATIENT FAMILY MEMBERS: IBETH - [phone] LESLIE (SON) - [phone]
--- OUTSIDE RECORDS SUMMARY | 2020-02-18 20:41 | XMS REPORT | Continuity of Care Document ---
Author Author [employer] [facility] Address Unknown Phone Unavailable Care Team Providers Care Automotive General Manager Name Role Phone [employer] Unavailable Un available Problems Problem Status Onset Date Classification Date Reported Comments Source [place] Paroxysmal ventricular tachycardia Active Problem 12/2015 Renaldo Levin Cardiomyopathy NOS Active Problem 08/26/2015 Renaldo Levin HTN heart dis, benign, with CHF Active Problem 12/2015 Renaldo Levin CHF Systolic and diastolic heart failure Active Problem 08/26/2015 Renaldo Levin Swelling of limb Active Problem 08/26/2015 Renaldo Levin Abnormal EKG Active Problem 08/26/2015 Renaldo Levin Hypercholesterolemia Active Problem 08/26/2015 Renaldo Levin Atherosclerosis of iliam[place] arteries of th e extremities with intermittent claudication Active Problem 08/26/2015 Renaldo Levin Angina Active Problem 08/26/2015 Renaldo Levin Acute systolic heart failure A ctive Problem 12/2015 Renaldo Levin Defibrillator Cardiac implantable in situ Active Problem 08/26/2015 Renaldo Levin CHF Chronic Systolic Heart Failure Active Problem 12/2015 Renaldo Levin Shortness of breath Active Problem 08/26/2015 Renaldo Levin History of atrial fibrillation Active Diagnosis 0 08/26/2015 Renaldo Levin Hypercholesteremia Active Diagnosis 08/26/2015 Renaldo Levin Abnormal EKG Active Diagnosis 01/04/2020 Renaldo Levin Cardiac defibrillator in situ Active Problem Renaldo Levin Syncope, unspecified syncope type Active Problem Renaldo Levin Shortness of breath Active Diagnosis 01/04/2020 Renaldo Levin Postural hypotension Active Diagnosis 01/04/2020 Renaldo Levin Postural hypotension Active Problem 08/26/2015 Renaldo Levin Syncope Active Problem 08/26/2015 Renaldo Levin Cardiomyopathy, unspecified Ac tive Problem Renaldo Levin Head trauma, initial encounter Active Problem Renaldo Levin Non-rheumatic mitral regurgitation Active Problem Renaldo Levin Non-ischemic cardiomyopathy Ac tive Problem Renaldo Levin Acquired insufficiency of aortic valve Active Problem Renaldo Levin Chronic atrial fibrillation Ac tive Problem Renaldo Levin Fall, initial encounter Active Problem 01/04/2020 Renaldo Levin Arteriosclerosis of both carotid arteries Active Problem 01/04/2020 Renaldo Levin Near syncope Active Problem 01/04/2020 Renaldo Levin Hypercholesteremia Active Diagnosis 01/04/2020 Renaldo Levin Medications Medication Details Route Status Patient Instructions Ordering Provider Order Date Source Zolpidem Tartrate 1 tablet at bedtime as needed Orally Active 10 MG Orally PRN Iancalderon [facility] Vicky Levin Spironolactone 1/2 tablet Orally Active 25 MG Orally [facility] [place] Venlafaxine HCl 1 tablet with food Orally Active 75 MG [facility] Levoxyl 1 tablet on an empty s tomach in the morning Orally Active 50 MCG Orally Once a day [facility] O[place] stool softener as directed NA [facility] [place] Aspirin EC Lo-Dose 1 tablet Orally Active 81 MG Orally [facility] Myrbetriq 1 tablet Orally Active 50 MG Orally [facility] [place] Gabapentin 1 capsule Orally Active 300 MG Orally Three [facility]af es [facility] Lovaza 2capsules Orally Active 1 GM Orally [facility]ID [facility] Nexium 1 capsule Orally Active 40 MG Orally [facility] [place] Multivitamins as directed Orally Active Orally [facility] [place] Levocetirizine Dihydrochloride 1 tablet in the evening Orally Active 5 MG Orally [facility] [place] Multaq 1 tablet with meals Orally Active 400 MG Orally Twice a day [place]llie Levin Crestor 1 tablet Orally Active 40 MG Orally Once a day [place] [facility] Vicky Levin Furosemide 1 tablet Orally Active 40 MG Orally Once a day [place]ie [place] adali O [place] Amitriptyline HCl 1 tablet at bedtime Orally Active 25 MG Orally Once a day Ollie Levin Levoxyl 1 tablet on an empty s tomach in the morning Orally Active 50 MCG Orally Once a day Alayna [facility] Fexofenadine HCl 1 tablet Orally Active 180 MG Orally Once a da y Ollie Levin Zolpidem Tartrate 1 tablet at bedtime as needed Orally Active 10 mg Orally as needed (prn) Iancalderon Levin [place] 3 1 capsule Orally Active 1000 MG Orally Once a d ay Ollie [place] [facility]ed [place] Amiodarone HCl 1 tablet Orally Active 200 MG Orally Once a da y Ollie Levin Midodrine HCl 1 tablet Orally Active 5 MG Orally three times a day (tid) Ollie Levin Eliquis Unknown Orally Active 5 MG Orally twice a day (bid) Ollie Levin Myrbetriq 1 tablet Orally Active 25 MG Orally [facility] Ollie [place] amed Vicky Levin BuPROPion HCl Unknown Orally Active 200 MG Orally twice a d ay (bid) Ollie Levin Spironolactone 1/2 half tablet Orally Active 25 MG Orally daily Iancalderon Levin [place] Allergy 1 tablet as ne eded Orally Active 180 MG Orally Once a day Iancalderon Levin Esomeprazole Sodium 1 tablet by mouth Active 40 mg by mouth daily Iancalderon Levin Levothyroxine Sodium 1 tablet Orally Active 50 MCG Orally Once a day Iancalderon Levin Zolpidem Tartrate 1 tablet at bedtime as needed Orally Active 10 mg Orally as needed (prn) Iancalderon Levin Myrbetriq 1 tablet Orally Active 50 MG Orally Once a day Iancalderon [place] [facility] Vicky Levin Midodrine HCl 1 tablet Orally Active 5 MG Orally four times a day (qid) as needed (prn) Iancalderon Levin Lupron Depot not defined Intramuscular Active 3.75 MG Intramuscular q3 [facility] [place] Amitriptyline HCl 1 tablet at bedtime Orally Active 25 MG Orally [facility] [place] Venlafaxine HCl ER 1 capsule w ith food Orally Active 75 MG Orally Once a day Jerdi [facility] [place] Tamsulosin HCl 1 capsule Orally Active 0.4 MG Orally Once a da y [facility] [place] Aspir-81 1 tablet Orally Active 81 MG Orally [facility] a day [facility] [place] Allergies, Adverse Reactions, Alerts Substance Category Reaction Severity Reaction type Status Date Reported Comments Source Iodine Adverse Reaction Rash Adverse Reaction Active 10/28/2018 [facility] [place] Avapro Adverse Reaction Cough Adverse Reaction Active 10/28/2018 [facility] [place] Immunizations No Data Provided for This Section Results No Data Provided for This Section Pathology Reports No Data Provided for This Section Diagnostic Reports No Data Provided for This Section Consultation Notes No Data Provided for This Section Discharge Summaries No Data Provided for This Section History and Physicals No Data Provided for This Section Vital Signs Vital Sign Value Date Comments Source Weight 286 09/13/2019 [facility] [place] Height 74 0 09/13/2019 [facility] [place] Temperature Oral (F) 96.1 F 09/13/2019 [facility] [place] Heart Rate 80 09/13/2019 [facility] [place] Diastolic (mm Hg) 82 09/13/2019 [facility] [place] Systolic (mm Hg) 120 09/13/2019 [facility] [place] [facility] 262 [facility] [place] Height 74 0 10/28/2018 [facility] [place] Temperature Oral (F) 97.2 F 10/28/2018 [facility] [place] Heart Rate 80 10/28/2018 [facility] [place] Diastolic (mm Hg) 90 10/28/2018 [facility] [place] Systolic (mm Hg) 148 10/28/2018 [facility] [place] Weight 276 [facility] Height 74 1 [facility] [place] Temperature Oral (F) 97.7 F 04/24/2015 [facility] [place] Heart Rate 80 04/24/2015 [facility] [place] Diastolic (mm Hg) 80 04/24/2015 Renaldo Levin Systolic (mm Hg) 130 04/24/2015 Renaldo Levin Weight 285 02/22/2014 Renaldo Levin Height 74 0 02/22/2014 Renaldo Levin Temperature Oral (F) 96.5 F 02/22/2014 Renaldo Levin Heart Rate 80 02/22/2014 Renaldo Levin Diastolic (mm Hg) 60 02/22/2014 Renaldo Levin Systolic (mm Hg) 115 02/22/2014 Renaldo Levin Encounters Location Location Details Encounter Type Encounter Number Reason For Visit Attending Provider ADM Date DC Date Status Source Renaldo Levin MD PA Unknown [id number] 02/23/20 14 02/22/2014 MD ROBERT Garvin Unknown [id number] 02/23/20 14 02/22/2014 Renaldo Levin MD PA Unknown [id number] 03/08/20 14 03/08/2014 MD ROBERT Garvin Unknown [id number] 04/04/20 14 04/04/2014 Renaldo Levin MD PA Unknown [id number] 07/04/20 14 07/04/2014 Renaldo Levin MD PA Cardiac Clearance [id number] 10/11/2014 10/11/2014 Renaldo Levin MD PA Unknown [id number] 04/24/20 15 04/24/2015 Renaldo Levin Procedures No Data Provided for This Section Assessment and Plan No Data Provided for This Section Plan of Care No Data Provided for This Section Social History Social History Date Source Social History ElementQualifiersDate Rep orted Smoking . Status Former Smoker Quit in 1998Apr 24, 2015 Alcohol Use No. Apr 24, 2015 Alcohol Screening: No. Did you have a drink containing alcohol in the past year?: No, Points: 0, Interpretation: Negative Apr 24, 2015 Marital Status: . Apr 24, 2015 Do you drink alcohol? No. 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 Apr 24, 2015 04/24/2015 Renaldo Levin Family History Value Date S ource QualifierDescriptionCommentDate Reported Mother Cancer Mar 08, 2014 Father CHF,AVR,CABG Mar 08, 2014 03/03/2014 Renaldo Levin Advance Directives No Data Provided for This Section Functional Status No Data Provided for This Section
--- OUTSIDE RECORDS SUMMARY | 2020-02-18 20:41 | XMS REPORT ---
Author Author Wilian Levin Organization [employer] Address Unknown Phone Unavailable Care Team Providers Care Export Freight Specialist Name Role Phone Renaldo Levin CP Unavailable Allergies, Adverse Reactions, Alerts Substance Reaction Event Type Iodine rash Drug Allergy Avapro Cough Drug Allergy Encounters Encounter Location Date Unknown Renaldo Levin MD PA Feb 22, 2014 Problems Problem Type Condition ICD-9 Code Onset Dates Condition Statu s Problem VT Paroxysmal ventricular tachycardia 427.1 Active Problem Cardiomyopathy NOS 425.4 Active Problem HTN heart dis, benign, with CHF 402.11 Active Problem CHF Systolic and diastolic heart failure 428.40 Active Assessment Swelling of limb 729.81 Active Problem Abnormal EKG 794.31 Active Assessment Hypercholesterolemia 272.0 Active Assessment Atherosclerosis of three affiliated ar teries of the extremities with intermittent claudication 440.21 Active Problem Angina 413.9 Active Problem Acute systolic heart failure 428.21 Active Problem Defibrillator Cardiac implantable in situ V45.02 Active Problem Atherosclerosis of three affiliated ar teries of the extremities with intermittent claudication 440.21 Active Problem CHF Chronic Systolic Heart Failure 428.22 Active Assessment Abnormal EKG 794.31 Active Assessment Defibrillator Cardiac implantable in situ V45.02 Active Assessment Shortness of breath 786.05 Active Assessment HTN heart dis, benign, with CHF 402.11 Active Assessment Acute systolic heart failure 428.21 Active Problem Hypercholesterolemia 272.0 Active Assessment Cardiomyopathy NOS 425.4 Active Problem Shortness of breath 786.05 Active Assessment Angina 413.9 Active Problem Swelling of limb 729.81 Active Medications Medication Code System Code Instructions Start Date End Date Status Dosage [facility] [address]-14 10 MG Orally PRN Active 1 tablet at bedtime as needed Spironolactone [facility] [address]-85 25 MG Orally Every other day Active 1/2 tablet Venlafaxine HCl [facility] [address]-28 75 MG Orally TID Active 1 tablet with food Levoxyl Unknown 0 50 MCG Orally Once a day Active 1 tablet on an empty stomach in the morning stool softener Unknown 0 Once a day Active as d irected Aspirin EC Lo-Dose [facility] [address]-73 81 MG Orally Once a day Active 1 tablet Myrbetriq [facility] [address]-05 50 MG Orally Once a day Active 1 tablet Gabapentin [facility] [address]-27 300 MG Orally Three times a day Active 1 capsule Lovaza [facility] [address]-57 1 GM Orally BID Active 2 capsules Nexium [facility] [address]-75 40 MG Orally Once a day A ctive 1 capsule Multivitamins [facility] 9[address]23-[address] Orally Once a day Ac tive as directed Levocetirizine Dihydrochloride [facility] [address]-15 5 MG Orally O nce a day Active 1 tablet in the evening Multaq [facility] [address]-87 400 MG Orally Twice a day Active 1 tablet with meals Crestor [facility] [address]-67 40 MG Orally Once a day A ctive 1 tablet Furosemide [facility] [address]-99 40 MG Orally Once a day Active 1 tablet Social History Social History Element Qualifiers Date Reported Smoking . Status Former Smoker Quit in 1998Mar 08, 2014 Alcohol Use No. Mar 08, 2014 Alcohol Screening: No. Did you have a drink containing alcohol in the past year?: No, Points: 0, Interpretation: Negative Mar 08, 2014 Marital Status: . Mar 08, 2014 Do you drink alcohol? No. 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 Mar 08, 2014 Family history Qualifier Description Comment Date Reported Mother Cancer Mar 08, 2014 Father CHF,AVR,CABG Mar 08, 2014 Vital Signs Date/Time: Feb 22, 2014 Weight 285 lbs Height 74 in Temperature 96.5 F Cardiac Monitoring Heart Rate 80 /min Blood Pressure Diastolic 60 mm Hg Blood Pressure Systolic 115 mm Hg Results Electrocardiogram (ECG) Summary Purpose [employer] Submission
--- OUTSIDE RECORDS SUMMARY | 2020-02-18 20:41 | XMS REPORT ---
Author Author Wilian Levin Organization [employer] Address Unknown Phone Unavailable Care Team Providers Care Parcel Carrier Name Role Phone Renaldo Levin CP Unavailable Allergies, Adverse Reactions, Alerts Substance Reaction Event Type Iodine Rash Drug Allergy Avapro Cough Drug Allergy Problems Problem Type Condition Code Onset Dates Condition Statu s Problem Cardiac defibrillator in situ Z95.810 Active Problem Head trauma, initial encounter S09.90XA Active Problem Syncope, unspecified syncope type R55 Active Problem Non-rheumatic mitral regurgitation I34.0 Active Assessment Cardiac defibrillator in situ Z95.810 Active Problem Non-ischemic cardiomyopathy I42.8 Active Assessment Shortness of breath R06.02 Active Assessment Abnormal EKG R94.31 Active Problem Acquired insufficiency of aortic valve I35.1 Active Problem Chronic atrial fibrillation I48.2 Active Problem Fall, initial encounter W19.XXXA Acti ve Problem Arteriosclerosis of both carotid arteries I65.23 Active Problem Near syncope R55 Active Assessment Postural hypotension I95.1 Active Assessment Non-ischemic cardiomyopathy I42.8 Active Assessment Hypercholesteremia E78.00 Active Assessment Chronic atrial fibrillation I48.2 Active Problem Abnormal EKG R94.31 Active Problem Hypercholesteremia E78.00 Active Problem Cardiomyopathy, unspecified I42.9 Active Problem Postural hypotension I95.1 Active Problem Shortness of breath R06.02 Active Medications Medication Code System Code Instructions Start Date End Date Status Dosage Levothyroxine Sodium NDC 91002550271 50 MCG Orally Once a day Active 1 tablet Spironolactone NDC 53467625656 25 MG Orally daily Ac tive 1/2 half tablet Midodrine HCl NDC 63536230978 5 MG Orally four times a day (qid) as needed (prn) Active 1 tablet Amitriptyline HCl NDC 92263882367 25 MG Orally Once a day Active 1 tablet at bedtime Esomeprazole Sodium [facility] [address]-69 40 mg by mouth daily Active 1 tablet Lupron Depot NDC 0 3.75 MG Intramuscular q3 months Active not defined Venlafaxine HCl ER [facility] 74803186248 75 MG Orally Once a day Active 1 capsule with food Tamsulosin HCl [facility] 04244923765 0.4 MG Orally Once a day Active 1 capsule Mabrella Allergy [facility] 05754785725 180 MG Orally Once a day Active 1 tablet as needed Aspir-81 [facility] 63671381907 81 MG Orally Once a day Act lorena 1 tablet Myrbetriq [facility] 59067872235 50 MG Orally Once a day Ac tive 1 tablet Vital Signs Date/Time: Sep 13, 2019 BMI 36.72 Index Weight 286 lbs Height 74 in Temperature 96.1 F Cardiac Monitoring Heart Rate 80 /min Blood Pressure Diastolic 82 mm Hg Blood Pressure Systolic 120 mm Hg Results No Known Results Summary Purpose [employer] Submission
--- OUTSIDE RECORDS SUMMARY | 2020-02-18 20:41 | XMS REPORT ---
Author Author Wilian Levin Organization [employer] Address Unknown Phone Unavailable Care Team Providers Care Tool Radial Drill Press Set Up Operator Name Role Phone Renaldo Levin Unavailable Allergies, Adverse Reactions, Alerts Substance Reaction Event Type Iodine Rash Drug Allergy Avapro Cough Drug Allergy Encounters Encounter Location Date Unknown Renaldo Levin MD [place] Jul 04, 2014 Cardiac Clearance Renaldo Levin MD [place] October 11, 2014 Unknown Renaldo Levin MD [place] Apr 24, 2015 Unknown Renaldo Levin MD [place] Feb 22, 2014 Unknown Renaldo Levin MD [place] Mar 08, 2014 Unknown Renaldo Levin MD [place] Apr 04, 2014 Problems Problem Type Condition ICD-9 Code Onset Dates Condition Statu s Assessment History of atrial fibrillation Z86.79 Active Assessment Hypercholesteremia E78.0 Active Assessment Abnormal EKG R94.31 Active Assessment Cardiac defibrillator in situ Z95.810 Active Assessment Syncope, unspecified syncope type R55 Active Problem Abnormal EKG 794.31 Active Assessment Shortness of breath R06.02 Active Problem CHF Systolic and diastolic heart failure 428.40 Active Assessment Postural hypotension I95.1 Active Problem Angina 413.9 Active Problem Postural hypotension 458.0 Active Problem Syncope 780.2 Active Problem Cardiomyopathy, unspecified I42.9 Active Problem Postural hypotension I95.1 Active Problem Shortness of breath 786.05 Active Problem Hypercholesterolemia 272.0 Active Problem Hypercholesteremia E78.0 Active Assessment Cardiomyopathy, unspecified I42.9 Active Problem Cardiac defibrillator in situ Z95.810 Active Problem Abnormal EKG R94.31 Active Problem Shortness of breath R06.02 Active Problem Syncope, unspecified syncope type R55 Active Problem HTN heart dis, benign, with CHF 402.11 Active Problem Cardiomyopathy NOS 425.4 Active Problem Swelling of limb 729.81 Active Problem VT Paroxysmal ventricular tachycardia 427.1 Active Problem CHF Chronic Systolic Heart Failure 428.22 Active Problem Atherosclerosis of [place] ar teries of the extremities with intermittent claudication 440.21 Active Problem Defibrillator Cardiac implantable in situ V45.02 Active Problem Acute systolic heart failure 428.21 Active Medications Medication Code System Code Instructions Start Date End Date Status Dosage stool softener Unknown 0 Once a day Active as d irected Amitriptyline HCl [facility] [address]-08 25 MG Orally Once a day Active 1 tablet at bedtime Spironolactone [facility] [address]-71 25 MG Orally MWF A ctive 1/2 tablet Levoxyl [facility] [address]-50 50 MCG Orally Once a day Active 1 tablet on an empty stomach in the morning Fexofenadine HCl [facility] [address]-29 180 MG Orally Once a day Active 1 tablet Nexium [facility] [address]-21 40 MG Orally Once a day A ctive 1 capsule Zolpidem Tartrate [facility] [address]-55 10 mg Orally as needed (prn) Active 1 tablet at bedtime as needed [place] 3 [facility] [address] 1000 MG Orally Once a day A ctive 1 capsule Amiodarone HCl [facility] [address]-73 200 MG Orally Once a day Active 1 tablet Midodrine HCl [facility] [address]-37 5 MG Orally three times a day (t id) Active 1 tablet Multivitamins [facility] 55042-[address]62 Orally Once a day Ac tive as directed Eliquis [facility] [address]-02 5 MG Orally twice a day (bid) Active Unknown Myrbetriq [facility] [address]-25 25 MG Orally MWF Active 1 tablet BuPROPion HCl [facility] [address]-93 200 MG Orally twice a day (bid) Active Unknown Social History Social History Element Qualifiers Date [...] Apr 24, 2015 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 Apr 24, 2015 Vital Signs Date/Time: Apr 24, 2015 Weight 276 lbs Height 74 in Temperature 97.7 F Cardiac Monitoring Heart Rate 80 /min Blood Pressure Diastolic 80 mm Hg Blood Pressure Systolic 130 mm Hg Summary Purpose [employer] Submission
--- OUTSIDE RECORDS SUMMARY | 2020-02-18 20:41 | XMS REPORT ---
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 Name Role Phone Jose D Levin Unavailable Allergies, Adverse Reactions, Alerts Substance Reaction Event Type Iodine Rash Drug Allergy Avapro Cough Drug Allergy Problems Problem Type Condition Code Onset Dates Condition Statu s Problem Cardiac defibrillator in situ Z95.810 Active Problem Head trauma, initial encounter S09.90XA Active Problem Syncope, unspecified syncope type R55 Active Problem Non-rheumatic mitral regurgitation I34.0 Active Assessment Postural hypotension I95.1 Active Problem Non-ischemic cardiomyopathy I42.8 Active Assessment Shortness of breath R06.02 Active Assessment Abnormal EKG R94.31 Active Problem Acquired insufficiency of aortic valve I35.1 Active Problem Chronic atrial fibrillation I48.2 Active Problem Fall, initial encounter W19.XXXA Acti ve Problem Arteriosclerosis of both carotid arteries I65.23 Active Problem Near syncope R55 Active Assessment Chronic atrial fibrillation I48.2 Active Assessment Non-ischemic cardiomyopathy I42.8 Active Assessment Cardiac defibrillator in situ Z95.810 Active Assessment Hypercholesteremia E78.00 Active Problem Abnormal EKG R94.31 Active Problem Hypercholesteremia E78.00 Active Problem Cardiomyopathy, unspecified I42.9 Active Problem Postural hypotension I95.1 Active Problem Shortness of breath R06.02 Active Medications Medication Code System Code Instructions Start Date End Date Status Dosage Spironolactone ND 57840138241 25 MG Orally daily Ac tive 1/2 half tablet [place] [facility] ND 85792430110 180 MG Orally Once a day Active 1 tablet as needed Esomeprazole Sodium [facility] [address]-27 40 mg by mouth daily Active 1 tablet Levothyroxine Sodium ND 53254487623 50 MCG Orally Once a day Active 1 tablet Zolpidem Tartrate ND 41558351169 10 mg Orally as needed (prn) Active 1 tablet at bedtime as needed Myrbetriq ND 52995830813 50 MG Orally Once a day Ac tive 1 tablet Midodrine HCl ND 07759300265 5 MG Orally four times a day (qid) as needed (prn) Active 1 tablet Lupron Depot NDC 0 3.75 MG Intramuscular q3 months Active not defined Amitriptyline HCl ND 29067290150 25 MG Orally Once a day Active 1 tablet at bedtime Vital Signs Date/Time: October 28, 2018 BMI 33.64 Index Weight 262 lbs Height 74 in Temperature 97.2 F Cardiac Monitoring Heart Rate 80 /min Blood Pressure Diastolic 90 mm Hg Blood Pressure Systolic 148 mm Hg Results No Known Results Summary Purpose [employer] Submission
--- OUTSIDE RECORDS SUMMARY | 2020-02-18 20:41 | XMS REPORT | Clinical Summary ---
Author Author [facility] Address Unknown Phone Unavailable Care Team Providers Care Child Development Specialist Name Role Phone Bradley Gregory MD PCP Allergies Comments Active Allergy Reactions Severity Noted Date Iodine Rash Low 04/24/2015 Iodine And Iodide Rash Low 10/14/2018 Containing Products Irbesartan Cough 04/24/2015 Medications End Date Status Medication Sig Dispensed Refills Start Date Active levothyroxine (SYNTHROID, TAKE ONE (1) 0 09/18 LEVOXYL) 50 mcg tablet TABLET(S) BY 9 MOUTH ONCE A DAY. Active pantoprazole (PROTONIX) TAKE ONE (1) 0 40 MG EC tablet TABLET(S) BY 9 MOUTH ONCE A DAY. Active fexofenadine (JOSE) 60 Take 60 mg by 0 MG tablet mouth daily. Active aspirin (ECOTRIN) 81 MG Take 81 mg by 0 enteric coated tablet mouth daily. Active midodrine (PROAMATINE) 10 Take 10 mg by 0 MG tablet mouth 3 (three) times a day. Active mirabegron (MYRBETIQ) 50 Take 50 mg by 0 mg tablet extended mouth daily. release 24 hr Active venlafaxine (EFFEXOR) 75 Take 75 mg by 0 MG tablet mouth daily. Active tamsulosin (FLOMAX) 0.4 Take 0.4 mg 0 mg capsule by mouth daily. Active amitriptyline (ELAVIL) 25 Take 25 mg by 0 MG tablet mouth nightly. Active spironolactone Take 25 mg by 0 (ALDACTONE) 25 MG tablet mouth daily. 02/20/2020 Active traMADoL (ULTRAM) 50 mg Take 1 tablet 20 tablet 0 tabletIndications: acute (50 mg total) 0 pain by mouth every 8 (eight) hours as needed for moderate pain for up to 10 days .acute pain. 11/25/2019 Discontinued spironolactone TAKE ONE-HALF 0 (ALDACTONE) 25 MG tablet (1/2) 9 TABLET(S) BY MOUTH ONCE A DAY. 12/05/2019 traMADoL (ULTRAM) 50 mg Take 1 tablet 30 tablet 0 tabletIndications: acute (50 mg total) 0 pain by mouth every 8 (eight) hours for 10 days .acute pain. 11/25/2019 methylPREDNISolone Take 1 tab po 2 tablet 0 11/24 (Medrol) 32 MG q 6-8 hours 0 tabletIndications: prior to Allergy to iodine examination; take 1 tab po q 2 hours prior to examination 11/25/2019 diphenhydrAMINE Take 1 tab po 1 capsule 1 11/25/19 2 (BENADRYL) 50 MG q 2 hours 0 capsuleIndications: prior to Allergy to iodine examination Active Problems No known active problems Encounters Care Team Description Date Type Specialty Haritha Rico MA 02/10/2020 Orders Only Orthopedic Surgery Fly Conde MD Muscle weakness of extremity (Primary Dx ) 02/03/2020 Office Visit Orthopedic Surgery 02/03/2020 Travel 01/26/2020 Travel Aline Alcaraz NP 12/22/2019 Telephone Radiology Hilda Emerson MD Strever, Michael Shane, CRNA 12/21/2019 Anesthesia Radiology Event Earl Bee MD 12/21/2019 Hospital Radiology Encounter Fly Conde MD Compression fracture of L4 lumbar verteb ra, sequela 12/21/2019 Hospital Radiology Encounter 12/21/2019 Travel 12/16/2019 Travel 12/10/2019 Travel Renaldo Levin MD 12/10/2019 Transcribe Radiology Orders Aline Alcaraz, ANGLEDOZER OPERATOR Compression fracture of L4 vertebra with delayed healing, subsequent encounter (Primary Dx) 12/06/2019 Orders Only Radiology 12/06/2019 Travel Fly Conde MD Compression fracture of L4 lumbar verteb ra, sequela (Primary Dx); Pre-operative clearance 11/30/2019 Office Visit Orthopedic Surgery Fly Conde MD 11/29/2019 Hospital Radiology Encounter Fly Conde MD Lumbar stenosis with neurogenic claudica tion 11/29/2019 Hospital Radiology Encounter Fly Conde MD Spinal stenosis of thoracic region; Lumbar stenosis with neurogenic claudication; Stress fracture of lumbar vertebra, initial encounter 11/29/2019 Hospital Radiology Encounter Fly Conde MD Spinal stenosis of thoracic region 11/29/2019 Hospital Radiology Encounter 11/29/2019 Travel Fly Conde MD Spinal stenosis of thoracic region (Prim orly Dx); Lumbar stenosis with neurogenic claudication; Stress fracture of lumbar vertebra, initial encounter; Allergy to iodine; Open wedge compression fracture of eleventh thoracic vertebra, sequela; Compression fracture of T11 vertebra, sequela; Compression fracture of L2 lumbar vertebra, sequela; Compression fracture of L4 lumbar vertebra, sequela 11/25/2019 Office Visit Orthopedic Surgery 11/25/2019 Travel 11/23/2019 Travel after 02/16/2019 Social History Date Tobacco Use Types Packs/Day Years Used Never Smoker Smokeless Tobacco: Never Used Drinks/Week oz/Week Comments Alcohol Use socially Yes Sex Assigned at Date Recorded Not on file Industry Job Start Date Occupation Not on file Not on file Not on file Travel End Travel History Travel Start No recent travel history available. Date Recorded COVID-19 Exposure Response 02/03/2020 10:28 AM CDT In the last month, have you been in contact with No / Unsure someone who was confirmed or suspected to have Coronavirus / COVID-19? Last Filed Vital Signs Reading Time Taken Comments Vital Sign 138/86 12/21/2019 3:25 PM CDT Blood Pressure 81 12/21/2019 3:25 PM CDT Pulse 36.9 C (98.4 F) 12/21/2019 11:10 AM CDT Temperature 18 12/21/2019 3:25 PM CDT Respiratory Rate 97% 12/21/2019 3:25 PM CDT Oxygen Saturation - - Inhaled Oxygen Concentration 118 kg (261 lb 3.2 oz) 12/21/2019 9:31 AM CDT Weight 193 cm (6' 4") 12/21/2019 9:31 AM CDT Height 31.79 12/21/2019 9:31 AM CDT Body Mass Index Plan of Treatment Health Maintenance Due Date Last Done Comments SHINGLES VACCINES (#1) 1990 65+ PNEUMOCOCCAL VACCINE 2005 03/28/2015 (2 of 2 - PPSV23) INFLUENZA VACCINE 02/19/2020 Implants Device Identifier Shelf Expiration Date Model / Serial / L ot Implanted Type Area Manufactur er 10/19/2019 [id number] / [id number] / [id number] Paul Hong Next Generation Powder Guard-D Cardiac N/A : N/A 40 - [id number] - [id number] Pacemaker Implanted: Qty: 1 on 10/14/2018 by Gener[employer] Bruce Hahn Jr., MD at [facility] [id number] / / Envlp Impl Crdvrtr Dfb Antbctrl Cardiovasc N/A: N/A [employer] Fully Resorb Lg Aigissrx R - ular [id number] Implants Implanted: 10/14/2018 at [facility] (Quantity not on file) [id number] / / Mixer Bn Cmnt Kyphon - [id number] Surgical N/A: N/A [employer] Implanted: 12/21/2019 at [facility] Implants; HOSPITAL (Quantity not on file) Expanders; Extenders; Surgical Wires Procedures Comments Procedure Name Priority Date/Time Associated Diag nosis IR KYPHOPLASTY FST VERT Routine 12/21/2019 Compre ssion fracture of BODY LUMBA 11:19 AM CDT L4 lumbar vertebra, sequela SURGICAL PATHOLOGY Routine 12/21/2019 REQUEST 10:39 AM CDT ECG PRE/POST OP Routine 12/21/2019 9:31 AM CDT PROTHROMBIN TIME WITH INR Routine 12/21/2019 9:27 AM CDT HC COMPLETE BLD COUNT Routine 12/21/2019 W/AUTO DIFF 9:27 AM CDT XR CHEST 1 VW Routine 12/21/2019 9:10 AM CDT CORONAVIRUS SARS-COV 2 Routine 12/06/2019 Pre-ope rative clearance 4:00 PM CDT ESTIMATED GFR Routine 12/06/2019 3:22 PM CDT PROTHROMBIN TIME WITH INR Routine 12/06/2019 Enco unter for other 3:22 PM CDT preprocedural examination BASIC METABOLIC PANEL Routine 12/06/2019 Encounte r for other 3:22 PM CDT preprocedural examination HC COMPLETE BLD COUNT Routine 12/06/2019 Encounte r for other W/AUTO DIFF 3:22 PM CDT preprocedural exami nation NM BONE SCAN WHOLE BODY Routine 11/29/2019 Spinal stenosis of 2:52 PM CDT thoracic region Lumbar stenosis with neurogenic claudication Stress fracture of lumbar vertebra, initial encounter CT THORACIC SPINE WO Routine 11/29/[address] enosis of CONTRAST 12:02 PM CDT thoracic region CT LUMBAR SPINE WO Routine 11/29/2019 Lumbar sten osis with CONTRAST 12:02 PM CDT neurogenic claudica tion after 02/16/2019 Results * IR Kyphoplasty Lumbar (12/21/2019 11:19 AM CDT) Specimen Narrative Performed At EXAMINATION: IR KYPHOPLASTY FST VERT BODY LUMBA [facility] CLINICAL HISTORY: S32.040S Wedge comp ression fracture of fourth lumbar vertebra sequela, PAIN EXAMINATION: IR KYPHOPLASTY FST VERT BODY LUMBA COMPARISON: CT lumbar spine November 28, 020. CLINICAL HISTORY: Osteoporotic compression fracture of L4 vertebral body not responsive to conservative therapy including bed rest and narcotic pain meds PREOPERATIVE DIAGNOSIS: Osteoporotic compression fracture of L4 . POSTOPERATIVE DIAGNOSIS: Same. After discussion of the radiographic fi ndings, along with a risk and benefits of the procedure with the patient, the pat ient wished to proceed. The patient understood the risks and benefits of th e procedure. Written informed consent was obtained. Prior to the procedure formal timeout p rocedure was performed. All elements of maximal sterile barrier technique were utilized. Prior to the procedure the patient was medicated with 1 g of intravenous Ancef Study was performed utilizing MAC under the supervision of the attending anesthesiologist TECHNIQUE: The patient was brought to the Fluorosc opy Suite and placed on the fluoroscopy table in prone position. The thoracolumbar region was prepped an d draped in standard sterile fashion. Initially the L4 vertebrae was identifi ed and marked on the skin surface. Transpedicular approach was utilized to access the L4 vertebral compression fracture bilaterally. The skin over the pedicles of L4 level was infiltrated with 1% buffered lidocaine. Deep infilt ration down to the periosteum was achieved with 0.25% bupivacaine. An 11 gauge entry needle was placed int o the posterior aspect of the body of L4 level bilaterally via transpedicular approach taking care to avoid broaching the pedicle negron. Positioning was conf irmed in both AP and lateral planes. Bone biopsy was performed due to histor y of prostate neoplasm Bone drills were utilized to create annette nnels through each trocar under continuous fluoroscopic visualization. Following creation of the channels, inf latable balloon tamps were introduced into the vertebral body through each tr ocar and inflated. No cortical breakthrough identified. Subsequently t he balloons were deflated and removed. Polymethylmethacrylate (PMMA) was then placed into the vertebral body cavity under continuous fluoroscopic imaging. Following cement placement, th e bilateral access trochars were removed and hemostasis was achieved with adequa te pressure. Total cement volume placed was 6 cc. BLOOD LOSS: Less than 2 cc COMPLICATIONS: No immediate complication POST-PROCEDURE: All incisions were closed with Steri-St rips and pressure dressing. The patient was then [facility] The patient was awake and moving all extremities and at this time showed no neurologic deficit. Ref Air Kerma (mGy) 1185.97 Procedure time was 36 minutes. IMPRESSION: Successful uncomplicated fluoroscopic-g uided kyphoplasty of L4 compression fracture. Adequate cement distribution in the fracture body. No complications. Patient recovered in day outpatient [facility] estella department. The patient was discharged with no repo rted pain. The patient was to follow up with Dr. Stephany smith [id number] Procedure Note Hm Interface, Radiology Results Incoming - 12/21/2019 5:47 PM CDT EXAMINATION: IR KYPHOPLASTY [facility] VERT BODY LUMBA CLINICAL HISTORY: S32.040S Wedge compression fracture of fourth lumbar vertebra sequela, PAIN EXAMINATION: IR KYPHOPLASTY FST VERT BODY LUMBA COMPARISON: CT lumbar spine November 29, 2019. CLINICAL HISTORY: Osteoporotic compression fracture of L4 vertebral body not responsive to conservative therapy including bed rest and narcotic pain meds PREOPERATIVE DIAGNOSIS: Osteoporotic compression fracture of L4. POSTOPERATIVE DIAGNOSIS: Same. After discussion of the radiographic findings, along with a risk and benefits of the procedure with the patient, the patient wished to proceed. The patient understood the risks and benefits of the procedure. Written informed consent was obtained. Prior to the procedure formal timeout procedure was performed. All elements of maximal sterile barrier technique were utilized. Prior to the procedure the patient was medicated with 1 g of intravenous Ancef Study was performed utilizing MAC under the supervision of the attending anesthesiologist TECHNIQUE: The patient was brought to the Fluoroscopy Suite and placed on the fluoroscopy table in prone position. The thoracolumbar region was prepped and draped in standard sterile fashion. Initially the L4 vertebrae was identified and marked on the skin surface. Transpedicular approach was utilized to access the L4 vertebral compression fracture bilaterally. The skin over the pedicles of L4 level was infiltrated with 1% buffered lidocaine. Deep infiltration down to the periosteum was achieved with 0.25% bupivacaine. An 11 gauge entry needle was placed into the posterior aspect of the body of L4 level bilaterally via transpedicular approach taking care to avoid broaching the pedicle negron. Positioning was confirmed in both AP and lateral planes. Bone biopsy was performed due to history of prostate neoplasm Bone drills were utilized to create channels through each trocar under continuous fluoroscopic visualization. Following creation of the channels, inflatable balloon tamps were introduced into the vertebral body through each trocar and inflated. No cortical breakthrough identified. Subsequently the balloons were deflated and removed. Polymethylmethacrylate (PMMA) was then placed into the vertebral body cavity under continuous fluoroscopic imaging. Following cement placement, the bilateral access trochars were removed and hemostasis was achieved with adequate pressure. Total cement volume placed was 6 cc. BLOOD LOSS: Less than 2 cc COMPLICATIONS: No immediate complication POST-PROCEDURE: All incisions were closed with Steri-Strips and pressure dressing. The patient was then turned supine on their hospital bed. The patient was awake and moving all extremities and at this time showed no neurologic deficit. Ref Air Kerma (mGy) 1185.97 Procedure time was 36 minutes. IMPRESSION: Successful uncomplicated fluoroscopic-guided kyphoplasty of L4 compression fracture. Adequate cement distribution in the fracture body. No complications. Patient recovered in day outpatient surgery department. The patient was discharged with no reported pain. The patient was to follow up with Dr. Conde [id number] Performing Organization Address City/State/Zipcode Ph one Number [facility] [address] [place] [address] * Surgical pathology request (12/21/2019 10:39 AM CDT) [facility] DEPARTMENT OF PATHOLOGY AND GENOMIC MEDICINE Surgical See link below for PDF Lab [facility] pathology Report DEPARTMENT OF report PATHOLOGY AND GENOMIC MEDICINE Result status This is Final Report for [facility] [id number] DEPARTMENT OF PATHOLOGY AND GENOMIC MEDICINE Specimen Performing Organization Address City/[facility] Ph one Number [facility] DE[place]MENT [place] [id number] [place] [address] [place], [place] [address] PATHOLOGY AND GENOMIC MEDICINE * ECG Pre/Post Op (12/21/2019 9:31 AM CDT) Ventricular 80 [facility] rate Atrial rate 90 [facility] QRSD interval 148 [facility] QT interval 442 [facility] QTC interval 509 [facility] QRS axis 1 -74 [facility] T wave axis 51 [facility] EKG impression Electronic ventricular [facility] pacemaker-In automated comparison with ECG of 14-OCT-2018 09:57,-No significant change was found- Specimen Narrative Performed At This result has an attachment that is n ot available. Performing Organization Address [facility] one Number [facility] MUSE [address] [place] [address] * Prothrombin time with INR (12/21/2019 9:27 AM CDT) Only the most recent of 2 results within the time period is included. Pathologist [facility] Prothrombin 13.8 11.5 - 14.5 sec [facility] INR 1.1 [place] Comment: [facility] The International Normalized [facility] Ratio (INR) is a therapeutic monitoring tool for patients who are stable on oral anticoagulant therapy. An INR of 2.0-3.0 is suggested for deep vein thrombosis/pulmonary embolism. Specimen Blood Performing Organization Address City/[facility] Ph one Number [facility] [address] [id number] [place] [address] [place], [place] [address] PATHOLOGY AND GENOMIC MEDICINE [address] [place] [address] [facility] * CBC with platelet and differential (12/21/2019 9:27 AM CDT) Only the most recent of 2 results within the time period is included. Pathologist [facility] WBC 7.62 4.50 - 11.00 k/uL [facility] RBC 4.50 4.40 - 6.00 m/uL [facility] HGB 14.1 14.0 - 18.0 g/dL [facility] HCT 42.3 41.0 - 51.0 % [facility] MCV 94.0 82.0 - 100.0 fL [facility] MCH 31.3 27.0 - 34.0 pg [facility] MCHC 33.3 31.0 - 37.0 g/dL [facility] RDW - SD 45.8 37.0 - 55.0 fL [facility] MPV 8.8 8.8 - 13.2 fL [facility] Platelet count 245 150 - 400 k/uL [facility] Nucleated RBC 0.00 /100 WBC [facility] Neutrophils 75.8 (H) 39.0 - 69.0 % [facility] Lymphocytes 10.6 (L) 25.0 - 45.0 % [facility] Monocytes 8.7 0.0 - 10.0 % [facility] Eosinophils 4.2 0.0 - 5.0 % [facility] Basophils 0.4 0.0 - 1.0 % [facility] Specimen Blood Performing Organization Address City/State/[facility] Ph one Number [facility] [place] [id number] [place] [address] PATHOLOGY AND GENOMIC MEDICINE [facility] [id number] [place] [address] [facility] * XR Chest 1 Vw (12/21/2019 9:10 AM CDT) Specimen Narrative Performed At EXAMINATION: XR CHEST 1 VW [facility] CLINICAL HISTORY: pre procedure COMPARISON: March 19, 2005 chest one view IMPRESSION: Left subclavian triple lead AICD with s hocking coils at the confluence of the left brachiocephalic vein-proximal supe rior vena cava and in the right ventricle. Hypoventilation limits exam. Pulmonary vasculature is normal and the lungs are clear without effusion. No pneumothorax . No acute or suspicious osseous lesion i s identified. Status-post ACDF. [id number] Procedure Note Hm Interface, Radiology Results Incoming - 12/21/2019 9:16 AM CDT EXAMINATION: XR CHEST 1 VW CLINICAL HISTORY: pre procedure COMPARISON: March 19, 2005 chest one view IMPRESSION: Left subclavian triple lead AICD with shocking coils at the confluence of the left brachiocephalic vein-proximal superior vena cava and in the right ventricle. Hypoventilation limits exam. Pulmonary vasculature is normal and the lungs are clear without effusion. No pneumothorax. No acute or suspicious osseous lesion is identified. Status-post ACDF. [id number] Performing Organization Address [facility] one Number [facility] [address] [place] [address] * Coronavirus SARS-CoV 2 (12/06/2019 4:00 PM CDT) [facility] SARS-CoV-2 Nasopharyngeal [facility] source Comment: Corrected result; previously reported as Nasopharyngeal Swab on 12/06/2019 at 15:56 by V/AUT SARS-CoV-2 by Not Detected [facility] PCR Comment: INTERPRETIVE INFORMATION: SARS-CoV-2 (COVID-19) by SOFIYA This test should be ordered for the detection of the 2019 novel coronavirus SARS-CoV-2 in individuals who meet SARS-CoV-2 clinical and/or epidemiological criteria. The Coronavirus SARS-CoV-2 (COVID-19) by nucleic acid amplification test is for in vitro diagnostic use under the FDA Emergency Use Authorization (EUA) for US laboratories certified under CLIA to perform high complexity tests. This test has not been FDA cleared or approved. In compliance with this authorization, please visit [email or web address] for more information and to access the applicable information sheets. If the result is Not Detected, this does not rule out the presence of PCR inhibitors in the patient specimen or assay specific nucleic acid in concentrations below the level of detection by the assay. Performed by [facility], [address] [place] [address] [email or web address], Raj Weiss MD - Lab. Director Specimen Performing Organization Address [facility] one Number [facility] [address] [place] [address] [facility] [address] [place] [address] * Estimated GFR (12/06/2019 3:22 PM CDT) [facility] Estimated GFR 81 mL/min/1.73 m2 [place] Comment: [facility] Interpretation G1 >=90 Normal or high G2 60-89 Mildly decreased G3a 45-59 Mildly to moderately decreased G3b 30-44 Moderately to severely decreased G4 15-29 Severely decreased G5 <15 Kidney failure The eGFR was calculated using the Chronic Kidney Disease Epidemiology Collaboration (CKD-EPI) equation. Interpretation is based on recommendations of the National Kidney Foundation-Kidney Disease Outcomes Quality Initiative (NKF-KDOQI) published in 2014. Specimen Performing Organization Address [facility] Ph one Number [address] [place] [address] PATHOLOGY AND [facility] MEDICINE [address] * Basic metabolic panel (12/06/2019 3:22 PM CDT) [facility] Sodium 138 135 - 148 mEq/L [facility] Potassium 4.1 3.5 - 5.0 mEq/L [facility] Chloride 103 98 - 112 mEq/L [facility] CO2 21 (L) 24 - 31 mEq/L [facility] Anion gap 14@ANIO 7 - 15 mEq/L [facility] BUN 18 8 - 23 mg/dL [facility] Creatinine 0.90 0.70 - 1.20 mg/dL [facility] Glucose 116 (H) 65 - 99 mg/dL [facility] Calcium 10.2 8.8 - 10.2 mg/dL [facility] Specimen Blood Performing Organization Address [facility] Ph one Number [facility] DEPARTMENT [address] [place] [address] PATHOLOGY AND [facility] MEDICINE [address] * NM Bone Scan Whole Body (11/29/2019 2:52 PM CDT) Specimen Narrative Performed At PROCEDURE: NM BONE SCAN WHOLE BODY [facility] INDICATION: Spinal stenosis of thorac ic region. Lumbar stenosis. Stress fracture of lumbar vertebra. COMPARISON: CT imaging of the thoraci c and lumbar spines performed on same day. TECHNIQUE: Approximately three hours af ter the IV administration of 25 mCi of Tc-99m labeled MDP, routine whole body planar bone scanning was performed in the anterior and posterior projections. FINDINGS: Prominent, linear uptake is noted in L4. Degenerative uptake in the lower thoracic spine and both shoul ders. Urine contamination in the groin. IMPRESSION: 1. Findings suggest a relatively rece nt compression fracture of L4. 2. Fractures in T11, T12, and L2 note d on comparison imaging appear chronic. [facility]-[id number] Procedure Note Interface, Radiology Results Incoming - 11/29/2019 4:57 PM CDT PROCEDURE: NM BONE SCAN WHOLE BODY INDICATION: Spinal stenosis of thoracic region. Lumbar stenosis. Stress fracture of lumbar vertebra. COMPARISON: CT imaging of the thoracic and lumbar spines performed on same day. TECHNIQUE: Approximately three hours after the IV administration of 25 mCi of Tc-99m labeled MDP, routine whole body planar bone scanning was performed in the anterior and posterior projections. FINDINGS: Prominent, linear uptake is noted in L4. Degenerative uptake in the lower thoracic spine and both shoulders. Urine contamination in the groin. IMPRESSION: 1. Findings suggest a relatively recent compression fracture of L4. 2. Fractures in T11, T12, and L2 noted on comparison imaging appear chronic. [facility]-[id number] Performing Organization Address City/State/Zipcode Ph one Number [facility] [address] [place] [address] * CT Lumbar Spine Wo Contrast (11/29/2019 12:02 PM CDT) Specimen Addenda Addendum by Shoaib Aldana MD on 11/29/2019 1:21 PM ADDENDUM #1 Age-indeterminate T11 vertebral body compression fracture on concurrent thoracic spinal CT. Patient has a cardiac pacemaker, which is contraindication for MRI unless the pacemaker is MR conditional. Narrative Performed At EXAMINATION: CT LUMBAR SPINE WO CONTRAST [facility]IR[facility] Serrano CLINICAL HISTORY: M48.062 Spinal sten osis lumbar region with neurogenic claudication, PAIN COMPARISON: Concurrent thoracic spina l CT on 11/29/2019. TECHNIQUE: Noncontrast lumbar spinal CT with multiplanar reconstruction performed using radiation dose reductio n techniques. Technical factors are evaluated and adjusted to ensure approp riate moderation of exposure. Automated dose management technology is applied to adjust radiation exposure while achieving a diagnostic quality image. FINDINGS: There are 5 lumbar type vertebrae, and the last functional disc is presumed to be L5-S1. There are age-indeterminate T12, L2, an d L4 vertebral body compression fractures involving superior endplates with appro ximately 30%, 35%, and 40% loss of vertebral body height at each of these levels, respectively. There is minimal retropulsion of superior posterior vertebral body negron . There are superimposed Schmorl's nodes, including large Schmorl's node along the L3 inferior endplate. There are nonspec ific small subcentimeter sclerotic lesions mostly in S1 sacrum and at leas t one in left ilium. There is partial ankylosis of the right sacroiliac joint. Straightening of normal lumbar lordosis without malalignment. 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 L5-S1: Spondylosis including left eccen tric endplate osteophyte and mild-moderate bilateral facet arthrosis results in mild-moderate left and mild right neural foraminal stenoses, possib ly encroaching on the exiting left L5 nerve root. No significant spinal canal stenosis suspected. L4-5: Spondylosis including mild disc b ulge, moderate bilateral facet arthrosis, mild ligamentum flavum hypertrophy mild and dorsal epidural lipomatosis results in trefoil configuration of the spinal canal with probable mild-moderate bilateral subarticular lateral recess stenoses. A t most mild bilateral neural foraminal stenoses. L3-4: Spondylosis including mild disc b ulge, moderate bilateral facet arthrosis, mild ligamentum flavum hypertrophy mild and dorsal epidural lipomatosis results in trefoil configuration of the spinal canal with probable mild-moderate bilateral subarticular lateral recess stenoses an d mild central spinal canal stenosis. At most mild bilateral neural foraminal st enoses. L2-3: Spondylosis including mild-modera te bilateral facet arthrosis and mild dorsal epidural lipomatosis results in probable mild spinal canal stenosis. No significant neural foraminal stenosis. L1-2: Spondylosis including mild-modera te right and mild left facet arthrosis. No significant neural foraminal stenosi s. No significant spinal canal stenosis suspected. T12-L1: Spondylosis including mild-mode rate bilateral facet arthrosis. No significant neural foraminal stenosis. No significant spinal canal stenosis suspected. T11-12: Dorsal spondylosis results in m ild-moderate bilateral neural foraminal stenoses possibly encroaching on exitin g T11 nerve roots. No significant spinal canal stenosis suspected. Diffuse mild fatty atrophy of bilateral posterior paraspinal muscles, likely from deconditioning. There are several round lesions with fluid density likely renal cysts in both kidneys, largest 2. 5 cm exophytic in left posterior kidney and 1.7 cm in right anterior kidney. IMPRESSION: 1. Age-indeterminate T12, L2, and L4 ve rtebral body compression fractures. 2. Multilevel lumbar spondylosis with e vidence of mild-moderate subarticular lateral recess stenoses at L3-4 and L4- 5. Mild-moderate bilateral T11-12 and left L5-S1 neural foraminal stenoses. 3. Baastrup's disease. 4. Nonspecific small subcentimeter scle rotic lesions mostly in S1 sacrum and at least one in left ilium, cannot exclude osteoblastic metastases. 5. Partial ankylosis of right sacroilia c joint of uncertain significance, correlate for various causes for sacroi liitis. RECOMMENDATION: Lumbar spinal MRI without and with intr avenous gadolinium contrast for further evaluation. 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 TECHNIQUE: Noncontrast lumbar spinal CT with multiplanar reconstruction performed using radiation dose reduction techniques. Technical factors are evaluated and adjusted to ensure appropriate moderation of exposure. Automated dose management technology is applied to adjust radiation exposure while achieving a diagnostic quality image. FINDINGS: There are 5 lumbar type vertebrae, and the last functional disc is presumed to be L5-S1. There are age-indeterminate T12, L2, and L4 vertebral body compression fractures involving superior endplates with approximately 30%, 35%, and 40% loss of vertebral body height at each of these levels, respectively. There is minimal retropulsion of superior posterior vertebral body negron. There are superimposed Schmorl's nodes, including large Schmorl's node along the L3 inferior endplate. There are nonspecific small subcentimeter sclerotic lesions mostly in S1 sacrum and at least one in left ilium. There is partial ankylosis of the right sacroiliac joint. Straightening of normal lumbar lordosis without malalignment. There is evidence of Baastrup's disease with all lumbar and visualized thoracic spinous processes hypertrophied and pseudoarticulating. L5-S1: Spondylosis including left eccentric endplate osteophyte and mild- moderate bilateral facet arthrosis results in mild-moderate left and mild right neural foraminal stenoses, possibly encroaching on the exiting left L5 nerve root. No significant spinal canal stenosis suspected. L4-5: Spondylosis including mild disc bulge, moderate bilateral facet arthrosis, mild ligamentum flavum hypertrophy mild and dorsal epidural lipomatosis results in trefoil configuration of the spinal canal with probable mild-moderate bilateral subarticular lateral recess stenoses. At most mild bilateral neural foraminal stenoses. L3-4: Spondylosis including mild disc bulge, moderate bilateral facet arthrosis, mild ligamentum flavum hypertrophy mild and dorsal epidural lipomatosis results in trefoil configuration of the spinal canal with probable mild-moderate bilateral subarticular lateral recess stenoses and mild central spinal canal stenosis. At most mild bilateral neural foraminal stenoses. L2-3: Spondylosis including mild-moderate bilateral facet arthrosis and mild dorsal epidural lipomatosis results in probable mild spinal canal stenosis. No significant neural foraminal stenosis. L1-2: Spondylosis including mild-moderate right and mild left facet arthrosis. No significant neural foraminal stenosis. No significant spinal canal stenosis suspected. T12-L1: Spondylosis including mild-moderate bilateral facet arthrosis. No significant neural foraminal stenosis. No significant spinal canal stenosis suspected. T11-12: Dorsal spondylosis results in mild-moderate bilateral neural foraminal stenoses possibly encroaching on exiting T11 nerve roots. No significant spinal canal stenosis suspected. Diffuse mild fatty atrophy of bilateral posterior paraspinal muscles, likely from deconditioning. There are several round lesions with fluid density likely renal cysts in both kidneys, largest 2.5 cm exophytic in left posterior kidney and 1.7 cm in right anterior kidney. IMPRESSION: 1. Age-indeterminate T12, L2, and L4 tyler tebral body compression fractures. 2. Multilevel lumbar spondylosis with ev idence of mild-moderate subarticular lateral recess stenoses at L3-4 and L4-5. Mild-moderate bilateral T11-12 and left L5-S1 neural foraminal stenoses. 3. Baastrup's disease. 4. Nonspecific small subcentimeter scler otic lesions mostly in S1 sacrum and at least one in left ilium, cannot exclude osteoblastic metastases. 5. Partial ankylosis of right sacroiliac joint of uncertain significance, correlate for various causes for sacroiliitis. RECOMMENDATION: Lumbar spinal MRI without and with intravenous gadolinium contrast for further evaluation. [id number] Performing Organization Address City/State/Zipcode Ph one Number [facility] [address] [place] [address] * CT Thoracic Spine Wo Contrast (11/29/2019 12:02 PM CDT) Specimen Narrative Performed At EXAMINATION: CT THORACIC SPINE WO CONTRAST [facility] CLINICAL HISTORY: M48.04 Spinal steno sis thoracic region, pain COMPARISON: Concurrent lumbar spinal CT on 11/29/2019 and cervical spinal radiographs on 05/09/2000. TECHNIQUE: Noncontrast thoracic spinal CT with multiplanar reconstruction performed using radiation dose reductio n techniques. Technical factors are evaluated and adjusted to ensure approp riate moderation of exposure. Automated dose management technology is applied to adjust radiati on exposure while achieving a diagnostic quality image. FINDINGS: There are are 12 rib-bearing thoracic-t ype vertebrae. There are age-indeterminate T11 and T12 vertebral body compression fractures with superimposed small Schmorl's nodes involving superior endplates with approximately 25% and 30% loss of verte bral body height at each of these levels, respectively. There is minimal retropulsion of the T12 superio r posterior vertebral body wall. There is mild straightening of normal t horacic kyphosis without malalignment. No suspicious osteolytic or osteoblastic l esion in the thoracic spine. Most thoracic spines processes are hypertrop hied and pseudoarticulating, relatively sparing superior thoracic levels. There are partially visualized postoper ative changes from cervical fusion with plate and screws extending inferiorly t o C7 level. There are multilevel mild-moderately pr ominent right anterolateral endplate osteophytes. Dorsal spondylosis results in mild-moderate right more than left T1-2, right T2-3, left T8-9, left T9-10 , bilateral T10-11, and bilateral T11-12 neural foraminal stenoses possibly encroaching on exitin g T1, T2, T8, T9, T10, and T11 nerve roots, respectively. No significant spi nal canal stenosis suspected. Diffuse mild fatty atrophy of bilateral posterior paraspinal muscles, likely from deconditioning. There is mild scar ring in bilateral lung apices. Remaining visualized lungs are unremarkable. Ther e is partially visualized left subclavian dual-lead cardiac pacemaker. IMPRESSION: 1. Age-indeterminate T11 and T12 verteb ral body compression fractures. 2. Thoracic spondylosis with multilevel mild-moderate neural foraminal stenoses. 3. Cardiac pacemaker, which is contrain dication for MRI unless the pacemaker is MR conditional. [id number] Procedure Note Hm Interface, Radiology Results - 11/29/2019 1:23 PM CDT EXAMINATION: CT THORACIC SPINE WO CONTRAST CLINICAL HISTORY: M48.04 Spinal stenosis thoracic region, pain COMPARISON: Concurrent lumbar spinal CT on 11/29/2019 and cervical spinal radiographs on 05/09/2000. TECHNIQUE: Noncontrast thoracic spinal CT with multiplanar reconstruction performed using radiation dose reduction techniques. Technical factors are evaluated and adjusted to ensure appropriate moderation of exposure. Automated dose management technology is applied to adjust radiation exposure while achieving a diagnostic quality image. FINDINGS: There are are 12 rib-bearing thoracic-type vertebrae. There are age-indeterminate T11 and T12 vertebral body compression fractures with superimposed small Schmorl's nodes involving superior endplates with approximately 25% and 30% loss of vertebral body height at each of these levels, respectively. There is minimal retropulsion of the T12 superior posterior vertebral body wall. There is mild straightening of normal thoracic kyphosis without malalignment. No suspicious osteolytic or osteoblastic lesion in the thoracic spine. Most thoracic spines processes are hypertrophied and pseudoarticulating, relatively sparing superior thoracic levels. There are partially visualized postoperative changes from cervical fusion with plate and screws extending inferiorly to C7 level. There are multilevel mild-moderately prominent right anterolateral endplate osteophytes. Dorsal spondylosis results in mild-moderate right more than left T1-2, right T2-3, left T8-9, left T9-10, bilateral T10-11, and bilateral T11-12 neural foraminal stenoses possibly encroaching on exiting T1, T2, T8, T9, T10, and T11 nerve roots, respectively. No significant spinal canal stenosis suspected. Diffuse mild fatty atrophy of bilateral posterior paraspinal muscles, likely from deconditioning. There is mild scarring in bilateral lung apices. Remaining visualized lungs are unremarkable. There is partially visualized left subclavian dual-lead cardiac pacemaker. IMPRESSION: 1. Age-indeterminate T11 and T12 vertebr al body compression fractures. 2. Thoracic spondylosis with multilevel mild-moderate neural foraminal stenoses. 3. Cardiac pacemaker, which is contraind ication for MRI unless the pacemaker is MR conditional. 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
--- OUTSIDE RECORDS SUMMARY | 2020-02-18 20:54 | XMS REPORT | Continuity of Care Document ---
Author Author [employer] Address Unknown Phone Unavailable Care Team Providers Care Real Estate Management Specialist Name Role Phone [employer] Information Exchange Unavailable Un available Problems Problem [...] Active Problem 08/26/2015 Renaldo Levin Atherosclerosis of [place] arteries of th e extremities with intermittent [...] Orally Active 10 MG Orally PRN Iancalderon [facility] Vicky Levin Spironolactone 1/2 tablet Orally Active 25 MG Orally [facility] [place] Venlafaxine HCl 1 tablet with food Orally Active 75 MG Orally [facility] [place] Levoxyl 1 tablet on an empty s tomach in the morning Orally Active 50 MCG Orally Once a day [facility] [place] stool softener as directed NA Active Once a [facility] [place] Aspirin EC Lo-Dose 1 tablet Orally Active 81 MG Orally Once a day [facility] [place] Myrbetriq 1 tablet Orally Active 50 MG Orally Once a day [facility] [place] Gabapentin 1 capsule Orally Active 300 MG Orally Three olaf es a day [facility] Vicky Levin Lovaza 2capsules Orally Active 1 GM Orally [facility]ID [facility] Nexium 1 capsule Orally Active 40 MG Orally [facility] day [facility] [place] Multivitamins as directed Orally Active Orally Once a day [facility] [place] Levocetirizine Dihydrochloride 1 tablet in the evening Orally Active 5 MG Orally Once a day [facility] [place] Multaq 1 tablet with [...] mg Orally as needed (prn) Iancalderon [place] 3 1 capsule Orally Active 1000 MG [...] tablet Orally Active 25 MG Orally [facility] [place] amed Vicky Levin BuPROPion [...] Intramuscular Active 3.75 MG Intramuscular q3 months [facility] [place] Amitriptyline HCl 1 tablet at bedtime Orally Active 25 MG Orally Once a day [facility] [place] Venlafaxine HCl ER 1 capsule w ith food Orally Active 75 MG Orally Once a day Jerdi [facility] [place] Tamsulosin HCl 1 capsule Orally Active 0.4 MG Orally Once a da y [facility] [place] Aspir-81 1 tablet Orally Active 81 MG Orally Once a day [facility] [place] [place] Allergies, Adverse Reactions, Alerts Substance Category Reaction Severity Reaction type Status Date Reported Comments Source Iodine Adverse Reaction Rash Adverse Reaction Active 10/28/2018 [facility] [place] Avapro Adverse Reaction Cough Adverse Reaction Active 10/28/2018 [facility] [place] Immunizations No Data Provided [...] 09/13/2019 [facility] [place] Weight 262 10/28/2018 [facility] [place] Height 74 0 10/28/2018 [facility] [place] Temperature Oral (F) 97.2 F 10/28/2018 [facility] [place] Heart Rate 80 10/28/2018 [facility] [place] Diastolic (mm Hg) 90 10/28/2018 [facility] [place] Systolic (mm Hg) 148 10/28/2018 [facility] [place] Weight 276 04/24/2015 [facility] [place] Height 74 1 Mohamed O [...] Status Source Renaldo Levin MD PA Unknown [id number] 02/23/20 14 02/22/2014 MD ROBERT Garvin Unknown [id number] 02/23/20 14 02/22/2014 Renaldo Levin MD PA Unknown [id number] 03/08/20 14 03/08/2014 MD ROBERT Garvin Unknown [id number] 04/04/20 14 04/04/2014 Renaldo Levin MD PA Unknown [id number] 07/04/20 14 07/04/2014 Renaldo Levin MD PA Cardiac Clearance [id number] 10/11/2014 10/11/2014 Renaldo Levin MD PA Unknown [id number] 04/24/20 15 04/24/2015 Renaldo Levin Procedures No [...] Apr 24, 2015 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 Apr 24, 2015 04/24/2015 Renaldo Levin Family History Value Date S ource QualifierDescriptionCommentDate Reported Mother Cancer Mar 08, 2014 Father CHF,AVR,CABG Mar 08, 2014 03/03/2014 Renaldo Levin Advance Directives No Data Provided for This Section Functional Status No Data Provided for This Section
--- NOTE | 2020-02-18 21:00 | NUR ---
UPON ENTERING ROOM, PATIENT HAD ATTEMPTED TO REMOVE BACK BRACE, TELE MONITOR, AND GOWN. REORIENTED PATIENT TO ROOM. ASSISTED PATIENT TURNING TO REMOVE BACK BRACE. REAPPLIED TELE AND GOWN. ASSISTED PATIENT TO USE URINAL AND CHANGED DIAPER. GOT PATIENT COMFORTABLE. PATIENT AGREED TO STAY IN BED TO PREVENT HIMSELF FROM FALLING. BED ALARM IS ACTIVE. WILL CONTINUE TO MONITOR PATIENT VERY CLOSELY.
--- NOTE | 2020-02-18 23:36 | Progress Note ---
DATE: 02/18/2020 Medicine Progress Note SUBJECTIVE: The patient was evaluated by Neurosurgery, recommends no surgery. TLSO brace has been ordered. Rehab physician consulted for potential rehab. PHYSICAL EXAMINATION: VITAL SIGNS: Temperature is 97.7, pulse is 80, respiratory rate is 18, blood pressure is 160/91, his pulse ox is 100% and he is on room air. GENERAL: Not in acute distress, alert and oriented x3. He is cooperative on examination. HEENT: Head is normocephalic and atraumatic. Eyes; pupils are reactive to light bilaterally. Extraocular movements are intact bilaterally. Throat, no evidence of any erythema or exudates in the posterior pharynx. NECK: Supple. Good range of motion throughout. PULMONARY: Clear to auscultation bilaterally. No wheezing, rales, or rhonchi. No crackles appreciated. CARDIOVASCULAR: Positive S1 and S2. No murmurs, rubs, or gallops appreciated. ABDOMEN: Soft, nondistended, nontender to palpation. Bowel sounds present. MUSCULOSKELETAL: Strength is 5/5 throughout. No evidence of muscle deficits on examination. No weakness appreciated. SKIN: Intact. Warm to touch. Good cap refill. PSYCHIATRIC: Normal affect and mood. He has baseline dementia. EXTREMITIES: No edema. Good range of motion throughout. LABORATORY FINDINGS: Show white count 5.7, hemoglobin 13.4, hematocrit is 39, and platelets of 210. Chemistry; sodium 142, potassium 3.5. Rest of the chemistries are stable. Coronavirus not detected. MICROBIOLOGY: None. IMAGING STUDIES: None, nothing new. IMPRESSION: 1. Multiple mechanical falls. 2. Concerns for L4 compression fracture. 3. Chronic thoracic and lumbar compression fractures. 4. History of orthostatic hypotension. 5. Benign prostatic hypertrophy. 6. He has baseline dementia. PLAN: At this time, I read Neurosurgery, Dr. Iglesias's note, recommends no further workup needed at this time. Continue with pain control. He did get his TLSO brace already by case management. It seems like that he does not need any kyphoplasty per Neurosurgery. I will go ahead and put him on Lovenox for DVT prophylaxis. I do not think he is a candidate for any anticoagulation like Eliquis due to multiple falls. He will be on a heart healthy diet. I tried speaking to the , in which I tried reaching out to her several times and I have been very unsuccessful. I would like to speak to the about multiple things, goals of care, code status, and his overall health and how he is doing currently. MD SIVA Boyer/CLIFTON /[id number]
[2020-02-19] VITALS (8 sets, daily range): BP systolic 105–170; BP diastolic 76–111
[2020-02-19] MEDS: HYDRALAZINE HCL 20 MG/ML VIAL IV PRN ×2 (00:44→04:59)
[2020-02-19] MEDS: ACETAMINOPHEN 325 MG TAB PO PRN (00:45)
[2020-02-19] MEDS: LEVOTHYROXINE SODIUM 50 MCG TAB PO SCH (07:00)
--- NOTE | 2020-02-19 07:00 | NUR ---
BEDSIDE SHIFT REPORT RECEIVED PT IN STABLE CONDITION, DENIES PAIN AT THIS TIME, UPDATED ON POC VOICED UNDERSTANDING, L FA 20G NO SS OF INFILTRATION NOTED, NO OTHER CO VOCIED CALL LIGHT IN REACH WILL CONTINUE TO MONITOR
[2020-02-19] MEDS: TAMSULOSIN HCL 0.4 MG CAP PO SCH (08:27)
[2020-02-19] MEDS: NON-FORMULARY MEDICATION (Mirabegron (Myrbetriq) 50 MG) PO SCH (08:27)
[2020-02-19] MEDS: MIDODRINE HCL 5 MG TABLET PO SCH (08:27)
[2020-02-19] MEDS: PANTOPRAZOLE SOD 40 MG TABEC PO SCH (08:27)
[2020-02-19] MEDS: VENLAFAXINE HCL 75 MG TAB PO SCH (08:27)
[2020-02-19] MEDS: AMITRIPTYLINE HCL 25 MG TAB PO SCH (08:27)
--- NOTE | 2020-02-19 12:04 | NUR ---
spoke with updated on poc
[2020-02-19] MEDS: ENOXAPARIN SOD INJ 40 MG/0.4 ML SYR SC SCH (16:23)
--- NOTE | 2020-02-19 16:34 | Progress Note ---
DATE: 02/19/2020 SUBJECTIVE: The patient is doing well today. He refused to work with physical therapy. I spoke with his , Ann. She wanted him to be DNR/DNI. She is the MPOA and decision making for him. LABORATORY FINDINGS: White count 5.7, hemoglobin 13.4, hematocrit is 39, and platelets of 210. Chemistry; sodium 142, potassium 3.5, chloride 109, bicarb 23, anion gap of 13, BUN 13, creatinine 0.79, and calcium is 9.7. LFTs are within normal range. Troponins were negative. Albumin was 3.5. Nava virus not detected. Microbiology none. IMAGING STUDIES: Reviewed. PHYSICAL EXAMINATION: VITAL SIGNS: Temperature is 96.5, pulse 80, respiratory rate is 20, blood pressure 121/76, and pulse ox 100% on room air. GENERAL: Not in acute distress, alert and oriented x2-3 occasionally. PULMONARY: Clear to auscultation bilaterally. No wheezing, rales, or rhonchi. No crackles appreciated. CARDIOVASCULAR: Positive S1, S2. No murmurs, rubs, or gallops appreciated. ABDOMEN: Soft, nondistended, nontender to palpation. Bowel sounds present. MUSCULOSKELETAL: Strength is 5/5 throughout. No evidence of any muscle deficits on examination. No weakness appreciated. NEUROLOGICAL: Cranial nerves II through XII grossly intact. No evidence of any neurological deficits on exam. SKIN: Intact. Warm to touch. Good cap refill. PSYCHIATRIC: Normal affect and mood extremities. No edema. Good range of motion throughout. IMPRESSION: 1. Multiple mechanical falls. 2. Concerns for an acute L4 compression fracture. 3. Chronic thoracic and lumbar compression fracture. 4. History of orthostatic hypotension. 5. Benign prostatic hypertrophy. 6. Baseline dementia. PLAN: At this time, Neurosurgery recommendations noted. No further intervention is needed. Continue with TLSO brace which has been placed on the patient. He may need kyphoplasty at a later date if he continues to have pain and no improvement. I spoke with the today, Ann and she has made her DNR/DNI. Apparently, that was suspicious and advanced directives and [facility] paperwork is in the chart. I changed the DNR status in the computer. Loli, the nurse witnessed conversation with them. I do not think he is a candidate for any anticoagulation at home, on Eliquis. Due to the fact that he has had multiple falls and he has significant amount of compression fractures. We will get morning labs. Lovenox for DVT prophylaxis. MD SIVA Boyer/MODL /[id number]
--- NOTE | 2020-02-19 19:00 | NUR ---
RECEIVED PATIENT IN BEDSIDE SHIFT REPORT. PATIENT RESTING IN BED AT THIS TIME. NO PAIN NOTED OR REPORTED. NO S&S OF DISTRESS NOTED. PATIENT ASKED FOR , IBETH, EXPLAINED HE IS IN THE HOSPITAL AND WE CANNOT HAVE VISITORS, ASSISTED PATIENT TO CALL . BED ALARM IS ACTIVE. TELE MONITOR IS ON. BED LOCKED IN LOWEST POSITION, SIDE RAILS UPX2, CALL LIGHT IN REACH.
[2020-02-20] VITALS (8 sets, daily range): BP systolic 131–172; BP diastolic 75–101
[2020-02-20 06:19] LABS: BASOPHILS % 0.3 % (0.0-1.0); EOSINOPHILS # (AUTO) 0.3 (0.0-0.4); EOSINOPHILS % 5.2 % (0.0-6.0); HEMATOCRIT 38.4 % (38.2-49.6); HEMOGLOBIN 13.2 g/dL (14.0-18.0); LYMPHOCYTES # (AUTO) 0.9 (1.0-3.2); LYMPHOCYTES % 15.2 % (18.0-39.1); MEAN CORPUSCULAR HEMOGLOBIN 30.7 pg (28-32); MEAN CORPUSCULAR HGB CONC 34.4 g/dL (31-35); MEAN CORPUSCULAR VOLUME 89.3 fL (81-99); MONOCYTES # (AUTO) 0.7 (0.2-0.8); MONOCYTES % 10.9 % (4.4-11.3); NEUTROPHILS # (AUTO) 4.1 (2.1-6.9); NEUTROPHILS % 67.9 % (38.7-80.0); PLATELET COUNT 216 x10e3/uL (140-360); RED CELL DISTRIBUTION WIDTH 13.3 % (11.7-14.4)
[2020-02-20 06:48] LABS: ANION GAP 12.8 mmol/L (8-16); BLOOD UREA NITROGEN 16 mg/dL (7-26); BUN/CREATININE RATIO 18 (6-25); CALCIUM 9.8 mg/dL (8.4-10.2); CARBON DIOXIDE 24 mmol/L (22-29); CHLORIDE 105 mmol/L (98-107); CREATININE, SERUM 0.91 mg/dL (0.72-1.25); EST GLOMERULAR FILTRATION RATE > 60 ML/MIN (60-); GLUCOSE 94 mg/dL (74-118); POTASSIUM 3.8 mmol/L (3.5-5.1); SODIUM 138 mmol/L (136-145)
[2020-02-20] MEDS: LEVOTHYROXINE SODIUM 50 MCG TAB PO SCH (06:59)
[2020-02-20] MEDS: NON-FORMULARY MEDICATION (Mirabegron (Myrbetriq) 50 MG) PO SCH (08:24)
[2020-02-20] MEDS: TAMSULOSIN HCL 0.4 MG CAP PO SCH (08:24)
[2020-02-20] MEDS: AMITRIPTYLINE HCL 25 MG TAB PO SCH (08:24)
[2020-02-20] MEDS: VENLAFAXINE HCL 75 MG TAB PO SCH (08:24)
[2020-02-20] MEDS: MIDODRINE HCL 5 MG TABLET PO SCH (08:25)
[2020-02-20] MEDS: PANTOPRAZOLE SOD 40 MG TABEC PO SCH (08:25)
[2020-02-20] MEDS: ENOXAPARIN SOD INJ 40 MG/0.4 ML SYR SC SCH (17:00)
--- NOTE | 2020-02-20 18:20 | Progress Note ---
DATE: 02/20/2020 Medicine Progress Note SUBJECTIVE: The patient is doing well today with no complaints. He wants his at his bedside, which we will go ahead and see if we can arrange. He is otherwise pain controlled. He has kind of forgetfulness. He does have underlying dementia. PHYSICAL EXAMINATION: VITAL SIGNS: Temperature is 98.6, pulse 76, respiratory rate 21, blood pressure 148/83, pulse ox 100% on room air. GENERAL: Not in acute distress, alert and oriented x3. Cooperative on examination. HEENT: Head is normocephalic and atraumatic. Eyes; pupils are reactive to light bilaterally. Extraocular movements are intact bilaterally. Throat, no evidence of any erythema or exudates in the posterior pharynx. Has poor dentition. NECK: Supple. Good range of motion throughout. PULMONARY: Clear to auscultation bilaterally. No wheezing, rales, or rhonchi. No crackles appreciated. CARDIOVASCULAR: Positive S1 and S2. No murmurs, rubs, or gallops appreciated. ABDOMEN: Soft, nondistended, nontender to palpation. Bowel sounds present. MUSCULOSKELETAL: Strength is 5/5 throughout. No evidence of any muscle deficits on examination. No weakness appreciated. NEUROLOGIC: Cranial nerves 2 through 12 grossly intact. No evidence of any neurological deficits on exam. SKIN: Intact. Warm to touch. Good cap refill. PSYCHIATRIC: Normal affect and mood. EXTREMITIES: No edema. Good range of motion throughout. LABORATORY DATA: Laboratory findings show CBC stable. Chemistry reviewed, stable. MICROBIOLOGY: None. IMAGING STUDIES: None. IMPRESSION: 1. Multiple mechanical falls. 2. Concerns for acute L4 compression fracture. 3. Chronic thoracic and lumbar compression fracture. 4. History of orthostatic hypotension. 5. Benign prostatic hypertrophy. 6. Baseline dementia. PLAN: At this time, Neurosurgery recommendations noted. No further intervention is needed. He has a TLSO brace, which we will continue. Work with Physical Medicine Rehab. I do not think he is a candidate for any anticoagulation due to multiple falls. Discussed with . We will put him on Lovenox for DVT prophylaxis. Plan is to either go to [facility] versus inpatient rehab depending on what Dr. Nino determines the best option for him. MD SIVA Boyer/SAMEERL /[id number]
--- NOTE | 2020-02-20 19:20 | NUR ---
RECEIVED PATIENT IN BEDSIDE SHIFT REPORT. PATIENT RESTING IN BED AT THIS TIME. NO PAIN NOTED OR REPORTED. NO S&S OF DISTRESS NOTED. AT BED SIDE. BED ALARM IS ACTIVE. TELE MONITOR IS ON. BED LOCKED IN LOWEST POSITION, SIDE RAILS UPX2, CALL LIGHT IN REACH.
[2020-02-20] MEDS: ACETAMINOPHEN 325 MG TAB PO PRN (21:45)
[2020-02-21] VITALS (8 sets, daily range): BP systolic 127–172; BP diastolic 84–106
[2020-02-21] MEDS: LEVOTHYROXINE SODIUM 50 MCG TAB PO SCH (06:04)
--- NOTE | 2020-02-21 07:25 | NUR ---
ASSUMED CARE. RESTING IN BED WITH EYES CLOSED. EQUAL RISE AND FALL OF CHEST NOTED WITH RESPIRATIONS. ACYANOTIC. NO DISTRESS NOTED. CALL LIGHT IN REACH. SIDE RAILS UP X2. BED LOW AND LOCKED.
[2020-02-21] MEDS: NON-FORMULARY MEDICATION (Mirabegron (Myrbetriq) 50 MG) PO SCH (09:00)
[2020-02-21] MEDS: TAMSULOSIN HCL 0.4 MG CAP PO SCH (09:14)
[2020-02-21] MEDS: VENLAFAXINE HCL 75 MG TAB PO SCH (09:14)
[2020-02-21] MEDS: PANTOPRAZOLE SOD 40 MG TABEC PO SCH (09:14)
[2020-02-21] MEDS: MIDODRINE HCL 5 MG TABLET PO SCH (09:14)
[2020-02-21] MEDS: AMITRIPTYLINE HCL 25 MG TAB PO SCH (09:14)
--- NOTE | 2020-02-21 09:25 | NUR ---
CALL TO PT'S ROOM. SPOKE W THE . DISCUSSED INPT REHAB. STATES SHE HAD ALREADY CHOSEN A LIST OF FACILITIES; [facility], [place], [facility] AND [facility] WAS HER LAST CHOICE. DISCUSSED THE DIFFERENCE BETWEEN INPT REHAB VS SNF. VERBALIZED UNDERSTANDING. CHOICE LETTER WAS SIGNED AND COPY TO THE CHART. NOTIFIED LEONARD DALEY OF NEW SNF REQUEST. CALL TO DR. BONNER TO CHANGE TO SNF. STATES OK. REQUESTED ATTENDING AT SNF BE UNDER Anneliese PADILLA.
--- NOTE | 2020-02-21 11:28 | NUR ---
PER REQUEST FAXED CLINICALS TO [facility], IN NETWORK WITH INSURANCE AND DR PADILLA CAN FOLLOW THERE. COMPLETED PASRR RTF AND PUT WITH PACKET AT NURSES STATION.
[2020-02-21] MEDS: ENOXAPARIN SOD INJ 40 MG/0.4 ML SYR SC SCH (16:52)
[2020-02-21] MEDS: HYDROCODONE/APAP 5MG-325MG TAB PO PRN (20:24)
--- NOTE | 2020-02-21 20:24 | NUR ---
RECEIVED PT IN BED AOX2 .C/O BACK PAIN FAMILY AT THE BEDSIDE ,CALL LIGHT WITH IN REACH ,CONTINUE TO MONITOR
[2020-02-21] MEDS: ZOLPIDEM TARTRATE 5 MG TAB PO PRN (21:39)
[2020-02-22] VITALS (8 sets, daily range): BP systolic 122–192; BP diastolic 51–99
[2020-02-22] MEDS: ACETAMINOPHEN 325 MG TAB PO PRN
--- NOTE | 2020-02-22 00:56 | Progress Note ---
DATE: 02/21/2020 Medicine Progress Note SUBJECTIVE: The patient is at his baseline with no complaints. The wants [facility] facility, which has been ordered. LABORATORY FINDINGS: CBC stable. Chemistry stable. Coronavirus not detected. MICROBIOLOGY: None. IMAGING STUDIES: None. PHYSICAL EXAMINATION: VITAL SIGNS: Temperature is 97.7, pulse 81, respiratory rate 20, blood pressure 127/84, pulse ox 100% on room air. GENERAL: Not in acute distress, alert and oriented x2 at his baseline. CARDIOVASCULAR: Positive S1, S2. No murmurs, rubs, or gallops appreciated. PULMONARY: Clear to auscultation bilaterally. No wheezing, rales, or rhonchi. No crackles appreciated. ABDOMEN: Soft, nondistended, nontender to palpation. Bowel sounds present. MUSCULOSKELETAL: Strength is 5/5 throughout. No evidence of any muscle deficits on examination. SKIN: Intact. Warm to touch. Good cap refill. PSYCHIATRIC: He has some baseline dementia. EXTREMITIES: No edema. Good range of motion throughout. IMPRESSION: 1. Multiple mechanical falls. 2. Concerns for acute L4 compression fracture. 3. Chronic thoracic lumbar compression fracture. 4. History of orthostatic hypotension. 5. Benign prostatic hypertrophy. 6. Baseline dementia. PLAN: At this time, Neurosurgery recommendation is noted. No further surgical intervention is needed. TSLO brace is at bedside. Continue with pain control. Again, I do not think he is a candidate for any anticoagulation due to multiple falls when he is discharged. He is on Lovenox for DVT prophylaxis here in the hospital. agrees to go to [facility] facility, which we will work on and discuss with Case Management. MD SIVA Boyer/CLIFTON /[id number]
[2020-02-22] MEDS: HYDROCODONE/APAP 5MG-325MG TAB PO PRN (04:00)
--- NOTE | 2020-02-22 05:59 | NUR ---
PT SLEPT OFF AND ON FAMILY AT THE BEDSIDE , C./O PAIN AND GIVEN ORDERED PAIN MEDICATION ,CALL LIGHT WITH IN REACH ,CONTINUE TO MONITOR
[2020-02-22] MEDS: LEVOTHYROXINE SODIUM 50 MCG TAB PO SCH (06:00)
--- NOTE | 2020-02-22 07:25 | NUR ---
BEDSIDE REPORT GIVEN TO THE ONCOMING NURSE
[2020-02-22] MEDS: NON-FORMULARY MEDICATION (Mirabegron (Myrbetriq) 50 MG) PO SCH (07:57)
[2020-02-22] MEDS: AMITRIPTYLINE HCL 25 MG TAB PO SCH (08:07)
[2020-02-22] MEDS: VENLAFAXINE HCL 75 MG TAB PO SCH (08:07)
[2020-02-22] MEDS: MIDODRINE HCL 5 MG TABLET PO SCH (08:07)
[2020-02-22] MEDS: TAMSULOSIN HCL 0.4 MG CAP PO SCH (08:07)
[2020-02-22] MEDS: PANTOPRAZOLE SOD 40 MG TABEC PO SCH (08:07)
[2020-02-22] MEDS: ENOXAPARIN SOD INJ 40 MG/0.4 ML SYR SC SCH (16:48)
--- NOTE | 2020-02-22 19:32 | NUR ---
RECEIVED PT IN BED CONFUSED .DENIES PAIN .PT HAS TAKEN TO DO CT OF THE BRAIN .CONTINUE TO MONITOR
--- NOTE | 2020-02-22 20:17 | Diagnostic Imaging Report ---
CT BRAIN WO HISTORY: Altered mental status COMPARISON: Report from head CT dated 04/16/2016 Technique: Noncontrast axial scans were obtained from skull base to the vertex. Coronal and sagittal reconstructions obtained from the axial data. One or more of the following dose reduction techniques were used: Automated exposure control, adjustment of the mA and/or kV according to patient size, and/or utilization of iterative reconstruction technique. DISCUSSION: Scalp/Skull: Unremarkable. Brain sulci: Mildly prominent. Ventricles: Compensatory dilatation. Extra-axial spaces: No masses or fluid collections. Carotid siphon calcifications are present. Parenchyma: Moderate bilateral deep white matter hypodensity is likely chronic microvascular ischemic change. Old small bilateral thalamic lacunar infarcts are present. Mild focal encephalomalacia in the right orbitofrontal region may be from remote trauma. Otherwise, no masses, hemorrhage, or large vascular territory acute infarct. Dural sinuses: No abnormal densities. Sellar/Suprasellar region: Intact. Skull base: Intact. Incidental findings: Mild scattered paranasal sinus mucosal thickening. Bilateral ocular lens replacement. IMPRESSION: 1. No acute intracranial abnormalities. 2. Moderate supratentorial chronic microvascular ischemic change with old bilateral thalamic lacunar infarcts. 3. Mild focal right orbitofrontal encephalomalacia may be from remote trauma. 4. Generalized cerebral volume loss. Signed by: Dr. Bro Long M.D. on 02/22/2020 8:14 PM
[2020-02-22] MEDS ORDERED: QUETIAPINE FUMARATE 25 MG TAB PO SCH (21:00)
[2020-02-22] MEDS: ZOLPIDEM TARTRATE 5 MG TAB PO PRN (22:00)
--- NOTE | 2020-02-22 22:50 | Consultation ---
DATE OF CONSULTATION: Neurology Consultation REASON FOR CONSULTATION: Recurrent falls and increasing dementia and delirium. The patient has worsening gait immobility as well as thoracic and lumbar compression fractures. He is a gentleman, who is large and has baseline dementia, multiple falls. He is on antidepressants and medications for orthostatic dysfunction. He is a very poor historian. Denies any symptoms and he does have a history known CHF. Comes after multiple falls and gait dysfunction. Compression fractures noted and this saw on the imaging of the spine. He has a history of known small-vessel disease and small-vessel stroke in the deep white matter of the brain in thalamic region. REVIEW OF SYSTEMS: It cannot be obtained from the patient due to clinical status . PHYSICAL EXAMINATION: VITAL SIGNS: Temperature is 97.7, blood pressure 192/51, fluctuating at 223/84; heart rate is 70s, and saturating 98% on nasal cannula. HEENT: His extraocular muscles are intact. 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 Pupils are reactive. His blink is slow to diminish. His face is masked facies. EXTREMITIES: He has increased muscle tone in the neck, arms, and legs with cogwheel rigidity in the arms, some waxy flexibility in arms as well. Increased muscle tone in the bilateral lower extremities and the arms. CARDIOVASCULAR: Regular rate and rhythm. PULMONARY: Clear. ABDOMEN: Soft, nontender. ASSESSMENT AND PLAN: Mr. Wilian Schwarz comes to my attention for multiple falls with orthostatic dysfunction, several symptoms reminiscent of parkinsonian dysfunction. 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 CT DaTscan as an outpatient. We wanted him to get a CT scan here now and start him on to see if that increases his mobility. I explained to the this might cause hallucinations, but we are going to try a low dose and see how he tolerates it. MD SUMI DOWELL/CLIFTON /[id number]
[2020-02-23 00:06] VITALS: BP 134/95
--- NOTE | 2020-02-23 01:41 | Progress Note ---
DATE: 02/22/2020 Medicine Progress Note SUBJECTIVE: The patient is doing well today with no complaints. The is still at bedside. She reports that at night he gets sundowning. I recommended oral Seroquel and she agreed with plan of care. We are still pending prison facility placement. PHYSICAL EXAMINATION: VITAL SIGNS: Temperature 98.3, pulse 80, respiratory rate is 20, blood pressure 145/96, pulse ox 100% on room air. GENERAL: In no acute distress, alert and oriented x2, at baseline. PULMONARY: Clear to auscultation bilaterally. No wheezing, rales, or rhonchi. No crackles appreciated. CARDIOVASCULAR: Positive S1 and S2. No murmurs, rubs, or gallops appreciated. ABDOMEN: Soft, nondistended, nontender to palpation. Bowel sounds present. MUSCULOSKELETAL: Strength is 4/5 throughout. SKIN: Intact. Warm to touch. Good cap refill. EXTREMITIES: No edema. Good range of motion throughout. LABORATORY DATA: White count 5.9, hemoglobin 13, hematocrit 38. Platelets of 216. Chemistry reviewed and stable. Microbiology, none. IMAGING STUDIES: CT of the brain, impression, no acute intracranial abnormality. Moderate supratentorial chronic microvascular ischemic changes with old bilateral thalamic lacunar infarcts. Mild focal right orbitofrontal encephalomalacia, maybe remote trauma. Generalized cerebral volume loss. IMPRESSION: 1. Multiple mechanical falls. 2. Concerns for acute L4 compression fracture. 3. Chronic thoracic lumbar compression fracture. 4. History of orthostatic hypotension. 5. Benign prostatic hypertrophy. 6. Baseline dementia. 7. Concerns for parkinsonian features-per Neurology recommendations pending preliminary report. PLAN: At this time, no further Neurosurgery workup is needed per their note. TLSO brace is at bedside. Pain control. Neurology evaluated the patient. We will start him on medications concerning for Parkinson features. From a medical standpoint, he is stable. I am waiting for prison facility to approval, which he can be discharged soon. CT brain was found to be negative. Get a.m. labs. His was concerned about the sundowning. She agreed for me to start on Seroquel 25 mg at bedtime to see if this will help. MD SIVA Boyer/SAMEERL /[id number]
[2020-02-23 05:28] LABS: ANION GAP 10.5 mmol/L (8-16); BLOOD UREA NITROGEN 13 mg/dL (7-26); BUN/CREATININE RATIO 14 (6-25); CALCIUM 9.5 mg/dL (8.4-10.2); CARBON DIOXIDE 25 mmol/L (22-29); CHLORIDE 107 mmol/L (98-107); CREATININE, SERUM 0.93 mg/dL (0.72-1.25); EST GLOMERULAR FILTRATION RATE > 60 ML/MIN (60-); GLUCOSE 96 mg/dL (74-118); POTASSIUM 3.5 mmol/L (3.5-5.1); SODIUM 139 mmol/L (136-145)
[2020-02-23 05:50] VITALS: BP 139/92
--- NOTE | 2020-02-23 06:13 | NUR ---
PT SLEPT OFF AND ON .DENIES PAIN FAMILY AT THE BEDSIDE CALL LIGHT WITH IN REACH ,CONTINUE TO MONITOR
[2020-02-23] MEDS: LEVOTHYROXINE SODIUM 50 MCG TAB PO SCH (06:39)
--- NOTE | 2020-02-23 06:49 | NUR ---
no acute changes confused overnight 97.9 81 122/98 awake, increased muscle tone throughout HEENT: His extraocular muscles are intact. 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 Pupils are reactive. His blink is slow to diminish. His face is masked facies. . CARDIOVASCULAR: Regular rate and rhythm. PULMONARY: Clear. ABDOMEN: Soft, nontender. neuro : awake, oriented to place decrease in blink + mask face He has increased muscle tone in the neck, arms, and legs rigidity in the arms, some waxy flexibility in arms as well. Increased muscle tone in the bilateral lower extremities and the arms no tremor + cogwheeling ASSESSMENT AND PLAN: Mr. Wilian Schwarz comes to my attention for multiple falls with orthostatic dysfunction, several symptoms reminiscent of parkinsonian dysfunction. 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 CT DaTscan as an outpatient. CT here stable, consistnat w/ white matter disease . given outpt intiation of nuplazid vs continued seroquel
--- NOTE | 2020-02-23 07:05 | NUR ---
BEDSIDE REPORT GIVEN TO THE ONCOMING NURSE
[2020-02-23 07:34] VITALS: BP 167/83
[2020-02-23] MEDS: NON-FORMULARY MEDICATION (Mirabegron (Myrbetriq) 50 MG) PO SCH (08:35)
--- NOTE | 2020-02-23 08:36 | NUR ---
DR BONNER WILL BE HERE TODAY TO SEE PT PRIOR TO DISCHARGE.
[2020-02-23] MEDS: VENLAFAXINE HCL 75 MG TAB PO SCH (08:37)
[2020-02-23] MEDS: AMITRIPTYLINE HCL 25 MG TAB PO SCH (08:37)
[2020-02-23] MEDS: TAMSULOSIN HCL 0.4 MG CAP PO SCH (08:39)
[2020-02-23] MEDS: PANTOPRAZOLE SOD 40 MG TABEC PO SCH (08:39)
[2020-02-23] MEDS: MIDODRINE HCL 5 MG TABLET PO SCH (08:39)
--- NOTE | 2020-02-23 08:41 | NUR ---
[facility] FACILITY DISCHARGE INFORMATION PATIENT HAS BEEN ACCEPTED TO: NAME: [facility]AR[facility] ADDRESS:[id number] [place] [address] ACCEPTING BOTANICAL TECHNICAL OFFICER:AZIZA WOOTEN ACCEPTING :VALERIE ROOM:[id number] NURSE CALL REPORT TO: [phone] IMM SIGNED AND OBTAINED (if applicable): IMM THE FOLLOWING DOCUMENTS MUST ACCOMPANY PATIENT FOR TRANSFER: COPIED CHART:PACKET
[2020-02-23 08:50] VITALS: BP 167/83
[2020-02-23] MEDS ORDERED: PRAMIPEXOLE DIHYDROCHLORIDE 0.25 MG TAB PO SCH (09:00)
[2020-02-23 11:32] VITALS: BP 111/82
[2020-02-23] MEDS ORDERED: SEROQUEL25 MG PO (12:39)
--- NOTE | 2020-02-23 13:20 | NUR ---
Attempted to call report for transfer to [facility], spoke to fire chief, she transferred the line to director digital advertising, line went to voicemail.
--- NOTE | 2020-02-23 13:30 | NUR ---
Called [phone], spoke to Tomasa Joseph , provided report of patient's status for transfer, medical diagnosis from MDs and vital signs.
--- NOTE | 2020-02-23 15:24 | NUR ---
infrastructure technician visited with pt and , infrastructure technician offered pastoral support , hope building through scripture and prayer. They expressed nilson and hope and appreciated infrastructure technician support chaplain Nat
[2020-02-23 15:32] VITALS: BP 145/84
[2020-02-23] MEDS ORDERED: QUETIAPINE FUMARATE 25 MG TAB PO SCH (21:00)
--- NOTE | 2020-02-24 00:31 | Discharge Summary ---
FINAL DISCHARGE DIAGNOSES: 1. Multiple mechanical falls. 2. Subacute L4 compression fracture. 3. Chronic thoracic-lumbar compression fracture. 4. History of orthostatic hypotension. 5. Benign prostatic hypertrophy. 6. Baseline dementia. 7. Possible underlying Parkinson features-per Neurology, needs outpatient followup. CONSULTANTS: 1. Neurology. 2. Neurosurgery. PHYSICAL EXAMINATION: VITAL SIGNS: Temperature was 98.6, pulse 80, respiratory rate is 18, blood pressure 111/82, pulse ox 97% on room air. LABORATORY FINDINGS: Show white count 5.9, hemoglobin 13, hematocrit is 38, platelets of 216. Chemistry; sodium 139, potassium 3.5, chloride 107, bicarb 25, anion gap of 10, BUN 13, creatinine 0.93. LFTs within normal range. Troponins were negative. Albumin was 3.5. SEROLOGY: Coronavirus not detected. MICROBIOLOGY: None. IMAGING STUDIES: Lumbar x-ray shows vertebroplasty is new compared to previous examination. L3 compression is new compared with previous examination. CT of the lumbar spine was performed shows no acute abnormalities. Chronic compression fractures of T11, T12, L2, L3, L4, associated with retropulsive fragments displaced in the spinal canal. Fracture L4 has been previously treated with vertebroplasty. Degenerative spinal canal and foraminal stenosis as described. Bones are diffusely demineralized. No acute abnormalities. CT brain showed no acute intracranial abnormalities. Moderate supratentorial chronic microvascular ischemic change with old bilateral thalamic lacunar infarcts. Mild focal right orbital frontal encephalomalacia may be remote trauma. Generalized cerebral volume loss. HOSPITAL COURSE: This is a 79-year-old male, who has baseline dementia, who has had generalized weakness and multiple mechanical falls at home. The patient was on oral Eliquis at home, in which I discontinued on discharge and discussed with the very thoroughly prior to being discharged and she agrees that the risk of falling and bleeding is much higher for her . He presented with multiple mechanical falls. Imaging studies consistent with chronic compression fractures. Neurosurgery was consulted, recommended no neurosurgical intervention. A TLSO brace was ordered, and which was provided to him at bedside. He worked with PT and OT and pain control, which he improved throughout the hospital course. wanted to have a neurologist involved to evaluate her . It seems the patient has underlying dementia per Neurology. He does need close followup as an outpatient for further management and care. The patient was otherwise stable prior to being discharged to home. The family did not want to go to an inpatient rehab, instead wanted to go to [facility], which was arranged at [facility]. The patient was stable prior to being discharged to home. He was at his baseline. I did add Seroquel at bedtime, which has helped this patient's behavioral disturbances likely from underlying dementia and sundowning. agreed with plan of care. On the day of discharge, vital signs were stable, labs reviewed and stable. The patient is seen and evaluated and examined thoroughly on the day of discharge. No other complaints. The patient verbalized understanding and agrees to plan of care to follow up accordingly as outpatient with the primary care physician in 1 week and neurologist in 2 weeks' time. Follow up with Neurosurgery in the future for in the event he does need any kind intervention and kyphoplasty if needed. MEDICATIONS: See med reconciliation form. DISPOSITION: Home. CONDITION: Stable. DIET: Heart healthy. In the event of any worsening symptoms, the patient was advised to come back to the ED for further evaluation. Discharge summary took greater than 35 minutes. MD SIVA Boyer/CLIFTON /[id number]
[2020-02-24] MEDS ORDERED: POLYETHYLENE GLYCOL 3350 17 GM PACK PO SCH (09:00)
== END 2020-02-23 15:39 | DRG 543 ==
LOC: ER 13:58 → ERHOLD 15:30 → MED/SURG 16:51
PROVIDERS: ADMIT Internal Medicine; ATTEND Internal Medicine
DX: M48.56XA Collapsed vertebra, not elsewhere classified, lumbar region, initial encounter for fracture (principal); F03.91 Unspecified dementia, unspecified severity, with behavioral disturbance; F05 Delirium due to known physiological condition; N40.0 Benign prostatic hyperplasia without lower urinary tract symptoms; I50.9 Heart failure, unspecified; W19.XXXA Unspecified fall, initial encounter; M48.55XA Collapsed vertebra, not elsewhere classified, thoracolumbar region, initial encounter for fracture; I95.1 Orthostatic hypotension; G20 Parkinson's disease; Z11.59 Encounter for screening for other viral diseases; E03.9 Hypothyroidism, unspecified; G47.30 Sleep apnea, unspecified; I11.0 Hypertensive heart disease with heart failure; M48.55XD Collapsed vertebra, not elsewhere classified, thoracolumbar region, subsequent encounter for fracture with routine healing; Z74.09 Other reduced mobility; Z95.810 Presence of automatic (implantable) cardiac defibrillator
CPT/HCPCS: 36415; 70450; 72110; 72131; 80048; 80053; 82550; 82553; 84484; 85025; 92523; 93005; 97139; 99284; J0360; J1650; U0002